=== PATIENT | female | born 1930 | race Caucasian/White ===

== ENCOUNTER 2018-11-16 13:05 | Inpatient (IN) | payer MEDICARE, OTHER ==
[~2018-11-16] VITALS: Ht 165.1 cm; Wt 92.3 kg
[2018-11-16 13:31] VITALS: BP 114/66; PULSE 72; RESP 18
[2018-11-16] MEDS ORDERED: HYDROCODONE/APAP (5/325) TAB PO PRN (14:30)
[2018-11-16] MEDS ORDERED: ACETAMINOPHEN 325 MG TAB PO PRN (14:30)
[2018-11-16] MEDS ORDERED: NACL 0.9% 3 ML SYG IV SCH (14:30)
[2018-11-16] MEDS ORDERED: NITROGLYCERIN (SL) 0.4 MG TAB SL PRN (14:30)
--- NOTE | 2018-11-16 14:49 | PREOPHP ---
DATE OF ADMISSION: 11/16/2018 REASON FOR ADMISSION: Cough with shortness of breath. HISTORY OF PRESENT ILLNESS: This 88-year-old female was seen in my office today because of a cough that she has had for about 1 week. The patient has had a congested cough. She has had some chills and sweats, but was not found to have an elevated temperature or fever. She also has some strong odor to her urine. The patient says that she feels weak. She does have a history of dementia and therefore her history is not accurate. Her son was on the phone at the same time I was seeing her. He did provide some details of her being weak with this cough and some strong odor to her urine. 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 MEDICATIONS: The patient is currently taking the followin. Celebrex 200 mg a day. 2. Dexilant 60 mg a day. 3. Estrace 1 mg a day. 4. Ferrous sulfate 325 mg a day. 5. Lasix 20 mg a day. 6. Gabapentin 400 mg twice a day. 7. [place] 5/325 every 6 hours p.r.n. pain. 8. Ativan 1 mg 2 times a day p.r.n. 9. Zoloft 100 mg a day. 10. Simvastatin 80 mg a day. 11. Xarelto 15 mg a day. PAST MEDICAL HISTORY: Remarkable for emphysema/COPD, atherosclerotic heart disease, chronic fatigue, hyperlipidemia, hypertension, carotid artery disease, scoliosis, menopausal lactose intolerance, peripheral neuropathy, depression, gastroesophageal reflux disease, chronic atrial fibrillation, mild dementia, lumbosacral spine disease. PAST SURGICAL HISTORY: Carotid angiogram with stent placement, back surgery, breast biopsy benign, tonsillectomy, total abdominal hysterectomy with bilateral salpingo-oophorectomy, right hip replacement, carotid endarterectomy. SOCIAL HISTORY: She is , former smoker. She does not drink alcohol. FAMILY HISTORY: Both parents are . Mother of leukemia. Father of coronary artery disease. REVIEW OF SYSTEMS: She denies chest pain. She does have some cough. See above. GASTROINTESTINAL: Negative. GENITOURINARY: Negative except that she has been told that her urine has a strong odor. NEUROLOGIC: Dementia and has some generalized weakness and is currently either using a walker or in a wheelchair. ALLERGIES: 1. DILAUDID 2. PENICILLIN. PHYSICAL EXAMINATION: GENERAL: Elderly frail female in no acute distress. VITAL SIGNS: Blood pressure 130/68, pulse of 91, temperature 97.8, O2 sat of 90% on 2 liter nasal cannula. The patient is on continuous oxygen. HEENT: Head normocephalic. Eyes: Extraocular muscles intact. NOSE AND MOUTH: Normal. NECK: Supple. No neck vein distention. LUNGS: She has rales in the right lung 3[address] Left lung she has some expiratory wheezes and coarse rhonchi. CARDIOVASCULAR: Irregular rhythm. No murmurs, gallops or rubs. ABDOMEN: Soft, nontender, no masses or megaly. EXTREMITIES: No peripheral edema. Pedal pulses are diminished. NEUROLOGIC: She has no obvious focal neurologic deficits, but does have diffuse weakness and needs either a walker or a wheelchair to ambulate. IMPRESSION: 1. Pneumonia/bronchitis superimposed on chronic obstructive pulmonary disease. The patient has had a cough for about 1 week. She sounds congested and has rales and wheezes on physical exam. She does use oxygen continuously on a regular basis at home . I suspect that she has either pneumonia and or acute bronchitis and will need antibiotic treatment. She is hypoxic off oxygen now . 2. Chronic atrial fibrillation. 3. Dementia. 4. Atherosclerotic heart disease. 5. Episodes of congestive heart failure with lower extremity edema. 6. Hyperlipidemia 7. UTI PLAN: 1. Routine laboratory tests and chest x-ray. 2. Start broad spectrum antibiotics. 3. Try to obtain sputum. 4. Urinalysis and urine culture. 5. Infectious disease consultation. 6. I have spoken to her son and for now, the patient wants to be a FULL CODE. Dictated By: BETTY MCKEON MD, ND/CORTES Conf#: [id number] DID#: [id number] [place]
[2018-11-16 15:44] VITALS: BP 135/69; PULSE 79; RESP 18
[2018-11-16] MEDS: LEVOFLOXACIN 500MG/D5W (PMX) 100 ML IVPB SCH (16:08)
[2018-11-16] MEDS: ALBUTEROL/IPRATROPIUM (NEB) 3 ML AMP HHN SCH (19:40)
[2018-11-16 19:53] VITALS: BP 135/60; PULSE 81; RESP 18
[2018-11-16] MEDS: GABAPENTIN 400 MG CAP PO SCH (21:42)
[2018-11-16] MEDS: ATORVASTATIN 20 MG TAB PO SCH (21:42)
[2018-11-17 00:52] VITALS: BP 131/81; PULSE 75; RESP 18
[2018-11-17 03:35] VITALS: BP 140/78; PULSE 75; RESP 18
[2018-11-17] MEDS: PANTOPRAZOLE (EC) 40 MG TAB PO SCH (06:01)
[2018-11-17] MEDS: ALBUTEROL/IPRATROPIUM (NEB) 3 ML AMP HHN SCH ×3 (08:00→20:58)
--- NOTE | 2018-11-17 08:40 | CONS ---
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 be enough 4) CAD CP is related to her coughing and she has some slight pain with pressure on her sternal/rib junction 5) chronic a-fib on xarelto Consultation Date/Type/Reason Admit Date/Time Nov 16, 2018 at 15:30 Date of Consultation: Nov 17, 2018 Type of Consult ID Date/Time of Note DATE: 11/17/18 TIME: 08:30 Hx of Present Illness pt was admitted due to cough productive of phlegm (color unknown) for about a week she also had some muscle aches at home she has a slight sore throat she has pain to her chest when she coughs no dysuria, N, V, D she was noted to have foul smelling urine Past Medical History COPD, ASHD, hyperlipidemia, scoliosis, peripheral neuropathy, chronic a-fib, dementia, HTN, CAD, GERD Medications Current Medications IV Flush (NS 3 ml) 3 ml PER PROTOCOL IV ; Start 11/16/18 at 14:30 Lorazepam (Ativan) 0.5 mg Q6H PRN IV .ANXIETY; Start 11/16/18 at 14:30 Nitroglycerin (Nitroglycerin (Sl Tab) 0.4 Mg) 1 tab Q5M PRN SL .CHEST PAIN; Start 11/16/18 at 14:30 Acetaminophen (Tylenol Tab) 650 mg Q6H PRN PO .PAIN 1-3 OR TEMP; Start 11/16/18 at 14:30 Acetaminophen/ Hydrocodone Bitart ([place] (5/325)) 1 tab Q6H PRN PO .PAIN 4-6 Last administered on 11/16/18at 15:59; Admin Dose 1 TAB; Start 11/16/18 at 14:30 Pantoprazole (Protonix Tab) 40 mg DAILY@06 PO Last administered on 11/17/18at 06:01; Admin Dose 40 MG; Start 11/17/18 at 06:00 Levofloxacin/ Dextrose 100 ml @ 100 mls/hr Q24H IVPB Last administered on 11/16/18at 16:08; Admin Dose 100 MLS/HR; Start 11/16/18 at 15:00 Albuterol/ Ipratropium (Duoneb) 3 ml Q6HWA RESP THERAPY HHN Last administered on 11/17/18at 08:00; Admin Dose 3 ML; Start 11/16/18 at 20:00 Celecoxib (Celebrex) 200 mg DAILY PO ; Start 11/17/18 at 09:00 Gabapentin (Neurontin) 400 mg BID PO Last administered on 11/16/18at 21:42; Admin Dose 400 MG; Start 11/16/18 at 21:00 Sertraline HCl (Zoloft) 100 mg DAILY PO ; Start 11/17/18 at 09:00 Atorvastatin Calcium (Lipitor) 20 mg HS PO Last administered on 11/16/18at 21:42; Admin Dose 20 MG; Start 11/16/18 at 21:00 Rivaroxaban (Xarelto) 15 mg DAILY PO ; Start 11/17/18 at 09:00 Allergies: Coded Allergies: Penicillins (Verified Allergy, Unknown, RASH, 06/17/09) hydromorphone (Verified Allergy, Unknown, RASH, 06/17/09) Past Surgical History R THR, CEA, back surgery. carotid stent Social History Smoking Status: Former smoker Exam/Review of Systems Exam Vitals Vital Signs Date Temp Pulse Resp B/P (MAP) Pulse Ox O2 O2 Flow FiO2 Time Delivery Rate 11/17/18 2.0 08:01 11/17/18 72 18 96 Nasal 08:01 Cannula 11/17/18 98.0 140/78 03:35 (98) Intake and Output 11/16/18 11/16/18 11/17/18 1515:00 23:00 07:00 IntakeIntake Total 300 ml 100 ml BalanceBalance 300 ml 100 ml Constitutional: alert Eyes: nl sclera ENMT: mucosa pink and moist Respiratory: other (coarse rhonchi bilateral) Cardiovascular: regular rate and rhythm Gastrointestinal: soft, non-tender Extremities: other (trace edema to LE but equal in size) Neurological: other (moves all extremities) Results Result Diagram: 11/17/18 0511/17/18 05 Results 24hrs Laboratory Tests Test 11/16/18 13:44 11/16/18 13:48 11/16/18 13:49 11/16/18 14:45 B-Type Natriuretic 7890 H Peptide White Blood Count 5.3 Red Blood Count 5.00 Hemoglobin 14.5 Hematocrit 45.8 Mean Corpuscular Volume 91.6 Mean Corpuscular 29.0 Hemoglobin Mean Corpuscular 31.7 L Hemoglobin Concent Red Cell Distribution 15.4 H Width Platelet Count 169 Mean Platelet Volume 10.7 H Immature Granulocytes % 0.400 Neutrophils % 77.1 H Lymphocytes % 8.1 L Monocytes % 11.5 H Eosinophils % 2.3 Basophils % 0.6 Nucleated Red Blood 0.0 Cells % Immature Granulocytes # 0.020 Neutrophils # 4.1 Lymphocytes # 0.4 L Monocytes # 0.6 Eosinophils # 0.1 Basophils # 0.0 Nucleated Red Blood 0.0 Cells # Prothrombin Time 25.0 H Prothrombin Time Ratio 2.0 INR International 2.26 Normalized Ratio Activated 49.6 H Partial Thromboplast Time Sodium Level 141 Potassium Level 3.8 Chloride Level 105 Carbon Dioxide Level 27 Anion Gap 9 Blood Urea Nitrogen 17 Creatinine 0.94 Est Glomerular Filtrat Rate mL/min Glucose Level 108 Calcium Level 9.4 Total Bilirubin 0.9 Direct Bilirubin 0.00 Indirect Bilirubin 0.9 Aspartate Amino 23 Transf (AST/SGOT) Alanine 24 Aminotransferase (ALT/SG PT) Alkaline Phosphatase 43 Total Protein 7.0 Albumin 4.0 Globulin 3.00 Albumin/Globulin Ratio 1.33 Procalcitonin 0.07 Urine Color YELLOW Urine Clarity CLOUDY A Urine pH 6.0 Urine Specific [place] 1.009 Urine Ketones NEGATIVE Urine Nitrite NEGATIVE Urine Bilirubin NEGATIVE Urine Urobilinogen NEGATIVE Urine Leukocyte Esterase 3+ H Urine Microscopic RBC 2 Urine Microscopic WBC > 182 H Urine Hemoglobin 2+ H Urine Glucose NEGATIVE Urine Total Protein 1+ H Test 11/17/18 05:26 White Blood Count 6.0 Red Blood Count 4.72 Hemoglobin 13.6 Hematocrit 43.7 Mean Corpuscular Volume 92.6 Mean Corpuscular 28.8 L Hemoglobin Mean Corpuscular 31.1 L Hemoglobin Concent Red Cell Distribution 15.2 H Width Platelet Count 168 Mean Platelet Volume 10.6 H Immature Granulocytes % 0.500 H Neutrophils % 71.8 Lymphocytes % 8.2 L Monocytes % 11.9 H Eosinophils % 6.9 Basophils % 0.7 Nucleated Red Blood 0.0 Cells % Immature Granulocytes # 0.030 Neutrophils # 4.3 Lymphocytes # 0.5 L Monocytes # 0.7 Eosinophils # 0.4 Basophils # 0.0 Nucleated Red Blood 0.0 Cells # Sodium Level 143 Potassium Level 4.0 Chloride Level 106 Carbon Dioxide Level 29 Anion Gap 8 Blood Urea Nitrogen 20 Creatinine 0.87 Est Glomerular Filtrat Rate mL/min Glucose Level 120 Calcium Level 9.0 Phosphorus Level 3.2 Magnesium Level 2.0 Total Bilirubin 0.5 Direct Bilirubin 0.00 Indirect Bilirubin 0.5 Aspartate Amino 23 Transf (AST/SGOT) Alanine 23 Aminotransferase (ALT/SG PT) Alkaline Phosphatase 35 L Total Protein 6.5 Albumin 3.6 Globulin 2.90 Albumin/Globulin Ratio 1.24 Medications Medication Current Medications IV Flush (NS 3 ml) 3 ml PER PROTOCOL IV ; Start 11/16/18 at 14:30 Lorazepam (Ativan) 0.5 mg Q6H PRN IV .ANXIETY; Start 11/16/18 at 14:30 Nitroglycerin (Nitroglycerin (Sl Tab) 0.4 Mg) 1 tab Q5M PRN SL .CHEST PAIN; Start 11/16/18 at 14:30 Acetaminophen (Tylenol Tab) 650 mg Q6H PRN PO .PAIN 1-3 OR TEMP; Start 11/16/18 at 14:30 Acetaminophen/ Hydrocodone Bitart ([place] (5/325)) 1 tab Q6H PRN PO .PAIN 4-6 Last administered on 11/16/18at 15:59; Admin Dose 1 TAB; Start 11/16/18 at 14:30 Pantoprazole (Protonix Tab) 40 mg DAILY@06 PO Last administered on 11/17/18at 06:01; Admin Dose 40 MG; Start 11/17/18 at 06:00 Levofloxacin/ Dextrose 100 ml @ 100 mls/hr Q24H IVPB Last administered on 11/16/18at 16:08; Admin Dose 100 MLS/HR; Start 11/16/18 at 15:00 Albuterol/ Ipratropium (Duoneb) 3 ml Q6HWA RESP THERAPY HHN Last administered on 11/17/18at 08:00; Admin Dose 3 ML; Start 11/16/18 at 20:00 Celecoxib (Celebrex) 200 mg DAILY PO ; Start 11/17/18 at 09:00 Gabapentin (Neurontin) 400 mg BID PO Last administered on 11/16/18at 21:42; Admin Dose 400 MG; Start 11/16/18 at 21:00 Sertraline HCl (Zoloft) 100 mg DAILY PO ; Start 11/17/18 at 09:00 Atorvastatin Calcium (Lipitor) 20 mg HS PO Last administered on 11/16/18at 21:42; Admin Dose 20 MG; Start 11/16/18 at 21:00 Rivaroxaban (Xarelto) 15 mg DAILY PO ; Start 11/17/18 at 09:00 LEXIE LEAVITT MD Nov 17, 2018 08:40
[2018-11-17] MEDS: GABAPENTIN 400 MG CAP PO SCH ×2 (09:03→21:06)
[2018-11-17] MEDS: CELECOXIB 200 MG CAP PO SCH (09:03)
[2018-11-17] MEDS: SERTRALINE 100 MG TAB PO SCH (09:03)
[2018-11-17] MEDS: RIVAROXABAN 15 MG TABLET PO SCH (09:03)
--- NOTE | 2018-11-17 10:11 | PN ---
Date/Time of Note Date/Time of Note DATE: 11/17/18 TIME: 10:09 Assessment/Plan VTE Prophylaxis Risk score (from Ns)>0 risk: 6 SCD applied (from [facility] [place]): Yes Pharmacological prophylaxis: rivaroxaban Lines/Catheters IV Catheter Type ([facility] Peripheral IV Assessment/Plan Assessment/Plan 1. URI/Bronchitis, ID eval apprec 2. Chronic atrial fibrillation, stable on xarelto 3. Dementia. 4. Atherosclerotic heart disease, asx 5. HX congestive heart failure, now not present 6. Hyperlipidemia 7. UTI, cult pending 8. Will be sure PT was ordered Result Diagram: 11/17/18 0511/17/18 05 Results 24hrs Laboratory Tests Test 11/16/18 13:44 11/16/18 13:48 11/16/18 13:49 11/16/18 14:45 B-Type Natriuretic 7890 H Peptide White Blood Count 5.3 Red Blood Count 5.00 Hemoglobin 14.5 Hematocrit 45.8 Mean Corpuscular Volume 91.6 Mean Corpuscular 29.0 Hemoglobin Mean Corpuscular 31.7 L Hemoglobin Concent Red Cell Distribution 15.4 H Width Platelet Count 169 Mean Platelet Volume 10.7 H Immature Granulocytes % 0.400 Neutrophils % 77.1 H Lymphocytes % 8.1 L Monocytes % 11.5 H Eosinophils % 2.3 Basophils % 0.6 Nucleated Red Blood 0.0 Cells % Immature Granulocytes # 0.020 Neutrophils # 4.1 Lymphocytes # 0.4 L Monocytes # 0.6 Eosinophils # 0.1 Basophils # 0.0 Nucleated Red Blood 0.0 Cells # Prothrombin Time 25.0 H Prothrombin Time Ratio 2.0 INR International 2.26 Normalized Ratio Activated 49.6 H Partial Thromboplast Time Sodium Level 141 Potassium Level 3.8 Chloride Level 105 Carbon Dioxide Level 27 Anion Gap 9 Blood Urea Nitrogen 17 Creatinine 0.94 Est Glomerular Filtrat Rate mL/min Glucose Level 108 Calcium Level 9.4 Total Bilirubin 0.9 Direct Bilirubin 0.00 Indirect Bilirubin 0.9 Aspartate Amino 23 Transf (AST/SGOT) Alanine 24 Aminotransferase (ALT/SG PT) Alkaline Phosphatase 43 Total Protein 7.0 Albumin 4.0 Globulin 3.00 Albumin/Globulin Ratio 1.33 Procalcitonin 0.07 Urine Color YELLOW Urine Clarity CLOUDY A Urine pH 6.0 Urine Specific [place] 1.009 Urine Ketones NEGATIVE Urine Nitrite NEGATIVE Urine Bilirubin NEGATIVE Urine Urobilinogen NEGATIVE Urine Leukocyte Esterase 3+ H Urine Microscopic RBC 2 Urine Microscopic WBC > 182 H Urine Hemoglobin 2+ H Urine Glucose NEGATIVE Urine Total Protein 1+ H Test 11/17/18 05:26 White Blood Count 6.0 Red Blood Count 4.72 Hemoglobin 13.6 Hematocrit 43.7 Mean Corpuscular Volume 92.6 Mean Corpuscular 28.8 L Hemoglobin Mean Corpuscular 31.1 L Hemoglobin Concent Red Cell Distribution 15.2 H Width Platelet Count 168 Mean Platelet Volume 10.6 H Immature Granulocytes % 0.500 H Neutrophils % 71.8 Lymphocytes % 8.2 L Monocytes % 11.9 H Eosinophils % 6.9 Basophils % 0.7 Nucleated Red Blood 0.0 Cells % Immature Granulocytes # 0.030 Neutrophils # 4.3 Lymphocytes # 0.5 L Monocytes # 0.7 Eosinophils # 0.4 Basophils # 0.0 Nucleated Red Blood 0.0 Cells # Sodium Level 143 Potassium Level 4.0 Chloride Level 106 Carbon Dioxide Level 29 Anion Gap 8 Blood Urea Nitrogen 20 Creatinine 0.87 Est Glomerular Filtrat Rate mL/min Glucose Level 120 Hemoglobin A1c 5.9 Calcium Level 9.0 Phosphorus Level 3.2 Magnesium Level 2.0 Total Bilirubin 0.5 Direct Bilirubin 0.00 Indirect Bilirubin 0.5 Aspartate Amino 23 Transf (AST/SGOT) Alanine 23 Aminotransferase (ALT/SG PT) Alkaline Phosphatase 35 L Total Protein 6.5 Albumin 3.6 Globulin 2.90 Albumin/Globulin Ratio 1.24 Subjective 24 Hr Interval Summary Constitutional: other (faigue and "does not feel well") Respiratory: cough (is mild and chest is congested) Gastrointestinal: no complaints Genitourinary: no complaints Neurologic: No headache Exam/Review of Systems Exam Vitals Vital Signs Date Temp Pulse Resp B/P (MAP) Pulse Ox O2 O2 Flow FiO2 Time Delivery Rate 11/17/18 2.0 08:01 11/17/18 72 18 96 Nasal 08:01 Cannula 11/17/18 98.0 140/78 03:35 (98) Intake and Output 11/16/18 11/16/18 11/17/18 1515:00 23:00 07:00 IntakeIntake Total 300 ml 100 ml BalanceBalance 300 ml 100 ml Neck: No jvd Respiratory: clear to auscultation Cardiovascular: irregular rhythm Gastrointestinal: soft Extremities: No edema, No pitting pedal edema, No tenderness Results Results 24hrs Laboratory Tests Test 11/16/18 13:44 11/16/18 13:48 11/16/18 13:49 11/16/18 14:45 B-Type Natriuretic 7890 H Peptide White Blood Count 5.3 Red Blood Count 5.00 Hemoglobin 14.5 Hematocrit 45.8 Mean Corpuscular Volume 91.6 Mean Corpuscular 29.0 Hemoglobin Mean Corpuscular 31.7 L Hemoglobin Concent Red Cell Distribution 15.4 H Width Platelet Count 169 Mean Platelet Volume 10.7 H Immature Granulocytes % 0.400 Neutrophils % 77.1 H Lymphocytes % 8.1 L Monocytes % 11.5 H Eosinophils % 2.3 Basophils % 0.6 Nucleated Red Blood 0.0 Cells % Immature Granulocytes # 0.020 Neutrophils # 4.1 Lymphocytes # 0.4 L Monocytes # 0.6 Eosinophils # 0.1 Basophils # 0.0 Nucleated Red Blood 0.0 Cells # Prothrombin Time 25.0 H Prothrombin Time Ratio 2.0 INR International 2.26 Normalized Ratio Activated 49.6 H Partial Thromboplast Time Sodium Level 141 Potassium Level 3.8 Chloride Level 105 Carbon Dioxide Level 27 Anion Gap 9 Blood Urea Nitrogen 17 Creatinine 0.94 Est Glomerular Filtrat Rate mL/min Glucose Level 108 Calcium Level 9.4 Total Bilirubin 0.9 Direct Bilirubin 0.00 Indirect Bilirubin 0.9 Aspartate Amino 23 Transf (AST/SGOT) Alanine 24 Aminotransferase (ALT/SG PT) Alkaline Phosphatase 43 Total Protein 7.0 Albumin 4.0 Globulin 3.00 Albumin/Globulin Ratio 1.33 Procalcitonin 0.07 Urine Color YELLOW Urine Clarity CLOUDY A Urine pH 6.0 Urine Specific [place] 1.009 Urine Ketones NEGATIVE Urine Nitrite NEGATIVE Urine Bilirubin NEGATIVE Urine Urobilinogen NEGATIVE Urine Leukocyte Esterase 3+ H Urine Microscopic RBC 2 Urine Microscopic WBC > 182 H Urine Hemoglobin 2+ H Urine Glucose NEGATIVE Urine Total Protein 1+ H Test 11/17/18 05:26 White Blood Count 6.0 Red Blood Count 4.72 Hemoglobin 13.6 Hematocrit 43.7 Mean Corpuscular Volume 92.6 Mean Corpuscular 28.8 L Hemoglobin Mean Corpuscular 31.1 L Hemoglobin Concent Red Cell Distribution 15.2 H Width Platelet Count 168 Mean Platelet Volume 10.6 H Immature Granulocytes % 0.500 H Neutrophils % 71.8 Lymphocytes % 8.2 L Monocytes % 11.9 H Eosinophils % 6.9 Basophils % 0.7 Nucleated Red Blood 0.0 Cells % Immature Granulocytes # 0.030 Neutrophils # 4.3 Lymphocytes # 0.5 L Monocytes # 0.7 Eosinophils # 0.4 Basophils # 0.0 Nucleated Red Blood 0.0 Cells # Sodium Level 143 Potassium Level 4.0 Chloride Level 106 Carbon Dioxide Level 29 Anion Gap 8 Blood Urea Nitrogen 20 Creatinine 0.87 Est Glomerular Filtrat Rate mL/min Glucose Level 120 Hemoglobin A1c 5.9 Calcium Level 9.0 Phosphorus Level 3.2 Magnesium Level 2.0 Total Bilirubin 0.5 Direct Bilirubin 0.00 Indirect Bilirubin 0.5 Aspartate Amino 23 Transf (AST/SGOT) Alanine 23 Aminotransferase (ALT/SG PT) Alkaline Phosphatase 35 L Total Protein 6.5 Albumin 3.6 Globulin 2.90 Albumin/Globulin Ratio 1.24 Medications Medication Current Medications IV Flush (NS 3 ml) 3 ml PER PROTOCOL IV ; Start 11/16/18 at 14:30 Lorazepam (Ativan) 0.5 mg Q6H PRN IV .ANXIETY; Start 11/16/18 at 14:30 Nitroglycerin (Nitroglycerin (Sl Tab) 0.4 Mg) 1 tab Q5M PRN SL .CHEST PAIN; Start 11/16/18 at 14:30 Acetaminophen (Tylenol Tab) 650 mg Q6H PRN PO .PAIN 1-3 OR TEMP; Start 11/16/18 at 14:30 Acetaminophen/ Hydrocodone Bitart ([place] (5/325)) 1 tab Q6H PRN PO .PAIN 4-6 Last administered on 11/16/18at 15:59; Admin Dose 1 TAB; Start 11/16/18 at 14:30 Pantoprazole (Protonix Tab) 40 mg DAILY@06 PO Last administered on 11/17/18at 06:01; Admin Dose 40 MG; Start 11/17/18 at 06:00 Levofloxacin/ Dextrose 100 ml @ 100 mls/hr Q24H IVPB Last administered on 11/16/18at 16:08; Admin Dose 100 MLS/HR; Start 11/16/18 at 15:00 Albuterol/ Ipratropium (Duoneb) 3 ml Q6HWA RESP THERAPY HHN Last administered on 11/17/18at 08:00; Admin Dose 3 ML; Start 11/16/18 at 20:00 Celecoxib (Celebrex) 200 mg DAILY PO Last administered on 11/17/18 09:03; Admin Dose 200 MG; Start 11/17/18 at 09:00 Gabapentin (Neurontin) 400 mg BID PO Last administered on 11/17/18 09:03; Admin Dose 400 MG; Start 11/16/18 at 21:00 Sertraline HCl (Zoloft) 100 mg DAILY PO Last administered on 11/17/18 09:03; Admin Dose 100 MG; Start 11/17/18 at 09:00 Atorvastatin Calcium (Lipitor) 20 mg HS PO Last administered on 11/16/18 21:42; Admin Dose 20 MG; Start 11/16/18 at 21:00 Rivaroxaban (Xarelto) 15 mg DAILY PO Last administered on 11/17/18 09:03; Admin Dose 15 MG; Start 11/17/18 at 09:00 MEGAN HEREDIA MD Nov 17, 2018 10:11
[2018-11-17 12:10] VITALS: BP 143/65; PULSE 85; RESP 18
[2018-11-17] MEDS: LEVOFLOXACIN 500MG/D5W (PMX) 100 ML IVPB SCH (14:28)
[2018-11-17 15:56] VITALS: BP 140/56; PULSE 79; RESP 18
[2018-11-17 19:46] VITALS: BP 137/83; PULSE 75; RESP 18
[2018-11-17] MEDS: ATORVASTATIN 20 MG TAB PO SCH (21:07)
[2018-11-18 00:21] VITALS: BP 163/87; PULSE 87; RESP 18
[2018-11-18 04:10] VITALS: BP 143/66; PULSE 72; RESP 18
[2018-11-18] MEDS: PANTOPRAZOLE (EC) 40 MG TAB PO SCH (05:41)
[2018-11-18 07:49] VITALS: BP 183/90; PULSE 83; RESP 18
[2018-11-18] MEDS ORDERED: LEVOFLOXACIN 500 MG TAB PO ONE (08:00)
[2018-11-18] MEDS: ALBUTEROL/IPRATROPIUM (NEB) 3 ML AMP HHN SCH ×3 (08:00→20:22)
--- NOTE | 2018-11-18 08:02 | CONS ---
Assessment/Plan Assessment/Plan Hospital Course (Demo Recall) 1) COPD exacerbation and bronchitis on levaquin initial procalcitonin was neg, to repeat get nasal for viral PCR sputum cx was just collected get nasal for MRSA 11/18 - nasal has MRSA but pt has improved this likely represents colonization, recommend 10 days of bactroban to nares finish her levaquin (7 day course) will change levaquin to po form 2) probable UTI GNR noted in urine cx normal WBC, await final sensi's renal function is good 11/18 - pt has proteus in urine, sensi's are not available till tomorrow continue with levaquin 3) dementia 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 which may not be enough 4) CAD CP is related to her coughing and she has some slight pain with pressure on her sternal/rib junction 5) chronic a-fib on xarelto Consultation Date/Type/Reason Admit Date/Time Nov 16, 2018 at 15:30 Initial Consult Date 11/17/18 Type of Consult ID Date/Time of Note DATE: 11/18/18 TIME: 07:57 24 HR Interval Summary Free Text/Dictation pt states her breathing is better and that she is going home still has a cough although she denies this no N, V, D Exam/Review of Systems Exam Vitals Vital Signs Date Temp Pulse Resp B/P (MAP) Pulse Ox O2 O2 Flow FiO2 Time Delivery Rate 11/18/18 97.9 83 18 183/90 97 07:49 (121) 11/18/18 3.0 04:13 11/17/18 Nasal 20:58 Cannula Intake and Output 11/17/18 11/17/18 11/18/18 1515:00 23:00 07:00 IntakeIntake Total 480 ml 500 ml BalanceBalance 480 ml 500 ml Constitutional: alert Eyes: nl sclera ENMT: mucosa pink and moist Respiratory: clear to auscultation Cardiovascular: regular rate and rhythm Gastrointestinal: soft, non-tender Results Result Diagram: 11/18/18 0508 11/18/18 0508 Results 24hrs Laboratory Tests Test 11/18/18 05:08 White Blood Count 5.6 Red Blood Count 4.68 Hemoglobin 13.6 Hematocrit 43.2 Mean Corpuscular Volume 92.3 Mean Corpuscular Hemoglobin 29.1 Mean Corpuscular Hemoglobin Concent 31.5 L Red Cell Distribution Width 15.5 H Platelet Count 184 Mean Platelet Volume 10.7 H Immature Granulocytes % 0.200 Neutrophils % 71.5 Lymphocytes % 11.4 L Monocytes % 9.6 Eosinophils % 6.6 Basophils % 0.7 Nucleated Red Blood Cells % 0.0 Immature Granulocytes # 0.010 Neutrophils # 4.0 Lymphocytes # 0.6 L Monocytes # 0.5 Eosinophils # 0.4 Basophils # 0.0 Nucleated Red Blood Cells # 0.0 Sodium Level 144 Potassium Level 3.5 Chloride Level 109 Carbon Dioxide Level 27 Anion Gap 8 Blood Urea Nitrogen 17 Creatinine 0.72 Est Glomerular Filtrat Rate mL/min Glucose Level 159 Calcium Level 9.1 Medications Medication Current Medications IV Flush (NS 3 ml) 3 ml PER PROTOCOL IV ; Start 11/16/18 at 14:30 Lorazepam (Ativan) 0.5 mg Q6H PRN IV .ANXIETY; Start 11/16/18 at 14:30 Nitroglycerin (Nitroglycerin (Sl Tab) 0.4 Mg) 1 tab Q5M PRN SL .CHEST PAIN; Start 11/16/18 at 14:30 Acetaminophen (Tylenol Tab) 650 mg Q6H PRN PO .PAIN 1-3 OR TEMP; Start 11/16/18 at 14:30 Acetaminophen/ Hydrocodone Bitart ([place] (5/325)) 1 tab Q6H PRN PO .PAIN 4-6 Last administered on 11/16/18at 15:59; Admin Dose 1 TAB; Start 11/16/18 at 14:30 Pantoprazole (Protonix Tab) 40 mg DAILY@06 PO Last administered on 11/17/18at 06:01; Admin Dose 40 MG; Start 11/17/18 at 06:00 Levofloxacin/ Dextrose 100 ml @ 100 mls/hr Q24H IVPB Last administered on 11/17/18 14:28; Admin Dose 100 MLS/HR; Start 11/16/18 at 15:00 Albuterol/ Ipratropium (Duoneb) 3 ml Q6HWA RESP THERAPY HHN Last administered on 11/17/18at 20:58; Admin Dose 3 ML; Start 11/16/18 at 20:00 Celecoxib (Celebrex) 200 mg DAILY PO Last administered on 11/17/18at 09:03; Admin Dose 200 MG; Start 11/17/18 at 09:00 Gabapentin (Neurontin) 400 mg BID PO Last administered on 11/17/18 21:06; Admin Dose 400 MG; Start 11/16/18 at 21:00 Sertraline HCl (Zoloft) 100 mg DAILY PO Last administered on 11/17/18 09:03; Admin Dose 100 MG; Start 11/17/18 at 09:00 Atorvastatin Calcium (Lipitor) 20 mg HS PO Last administered on 11/17/18at 21:07; Admin Dose 20 MG; Start 11/16/18 at 21:00 Rivaroxaban (Xarelto) 15 mg DAILY PO Last administered on 11/17/18 09:03; Admin Dose 15 MG; Start 11/17/18 at 09:00 LEXIE LEAVITT MD Nov 18, 2018 08:02
--- NOTE | 2018-11-18 09:42 | PN ---
Date/Time of Note Date/Time of Note DATE: 11/18/18 TIME: 09:40 Assessment/Plan VTE Prophylaxis Risk score (from Ns)>0 risk: 6 SCD applied (from Ns): Yes Pharmacological prophylaxis: rivaroxaban Lines/Catheters IV Catheter Type (from Nrsg): Peripheral IV Assessment/Plan Assessment/Plan 1. Acute bronchitis, slowly resolving, ID note rev 2. Atrial fib 3. BP inc, added Catapres 4. Dementia is problematic, wants to go home today, rev with her importance of continuing care here Result Diagram: 11/18/18 0508 11/18/18 0508 Results 24hrs Laboratory Tests Test 11/18/18 05:08 White Blood Count 5.6 Red Blood Count 4.68 Hemoglobin 13.6 Hematocrit 43.2 Mean Corpuscular Volume 92.3 Mean Corpuscular Hemoglobin 29.1 Mean Corpuscular Hemoglobin Concent 31.5 L Red Cell Distribution Width 15.5 H Platelet Count 184 Mean Platelet Volume 10.7 H Immature Granulocytes % 0.200 Neutrophils % 71.5 Lymphocytes % 11.4 L Monocytes % 9.6 Eosinophils % 6.6 Basophils % 0.7 Nucleated Red Blood Cells % 0.0 Immature Granulocytes # 0.010 Neutrophils # 4.0 Lymphocytes # 0.6 L Monocytes # 0.5 Eosinophils # 0.4 Basophils # 0.0 Nucleated Red Blood Cells # 0.0 Sodium Level 144 Potassium Level 3.5 Chloride Level 109 Carbon Dioxide Level 27 Anion Gap 8 Blood Urea Nitrogen 17 Creatinine 0.72 Est Glomerular Filtrat Rate mL/min Glucose Level 159 Calcium Level 9.1 Subjective 24 Hr Interval Summary Respiratory: cough (is mild and not productive); No pleuritic pain, No shortness of breath Cardiovascular: no complaints Gastrointestinal: no complaints Genitourinary: no complaints Musculoskeletal: no complaints Exam/Review of Systems Exam Vitals Vital Signs Date Temp Pulse Resp B/P (MAP) Pulse Ox O2 O2 Flow FiO2 Time Delivery Rate 11/18/18 4.0 08:21 11/18/18 97.9 83 18 183/90 97 07:49 (121) 11/17/18 Nasal 20:58 Cannula Intake and Output 11/17/18 11/17/18 11/18/18 1515:00 23:00 07:00 IntakeIntake Total 480 ml 500 ml BalanceBalance 480 ml 500 ml Neck: No jvd Respiratory: other (rhonchi and few wheezes bilat) Cardiovascular: No irregular rhythm Gastrointestinal: soft Extremities: No edema Results Results 24hrs Laboratory Tests Test 11/18/18 05:08 White Blood Count 5.6 Red Blood Count 4.68 Hemoglobin 13.6 Hematocrit 43.2 Mean Corpuscular Volume 92.3 Mean Corpuscular Hemoglobin 29.1 Mean Corpuscular Hemoglobin Concent 31.5 L Red Cell Distribution Width 15.5 H Platelet Count 184 Mean Platelet Volume 10.7 H Immature Granulocytes % 0.200 Neutrophils % 71.5 Lymphocytes % 11.4 L Monocytes % 9.6 Eosinophils % 6.6 Basophils % 0.7 Nucleated Red Blood Cells % 0.0 Immature Granulocytes # 0.010 Neutrophils # 4.0 Lymphocytes # 0.6 L Monocytes # 0.5 Eosinophils # 0.4 Basophils # 0.0 Nucleated Red Blood Cells # 0.0 Sodium Level 144 Potassium Level 3.5 Chloride Level 109 Carbon Dioxide Level 27 Anion Gap 8 Blood Urea Nitrogen 17 Creatinine 0.72 Est Glomerular Filtrat Rate mL/min Glucose Level 159 Calcium Level 9.1 Medications Medication Current Medications IV Flush (NS 3 ml) 3 ml PER PROTOCOL IV ; Start 11/16/18 at 14:30 Lorazepam (Ativan) 0.5 mg Q6H PRN IV .ANXIETY; Start 11/16/18 at 14:30 Nitroglycerin (Nitroglycerin (Sl Tab) 0.4 Mg) 1 tab Q5M PRN SL .CHEST PAIN; Start 11/16/18 at 14:30 Acetaminophen (Tylenol Tab) 650 mg Q6H PRN PO .PAIN 1-3 OR TEMP; Start 11/16/18 at 14:30 Acetaminophen/ Hydrocodone Bitart ([place] (5/325)) 1 tab Q6H PRN PO .PAIN 4-6 Last administered on 11/16/18at 15:59; Admin Dose 1 TAB; Start 11/16/18 at 14:30 Pantoprazole (Protonix Tab) 40 mg DAILY@06 PO Last administered on 11/17/18at 06:01; Admin Dose 40 MG; Start 11/17/18 at 06:00 Albuterol/ Ipratropium (Duoneb) 3 ml Q6HWA RESP THERAPY HHN Last administered on 11/17/18at 20:58; Admin Dose 3 ML; Start 11/16/18 at 20:00 Celecoxib (Celebrex) 200 mg DAILY PO Last administered on 11/17/18 09:03; Admin Dose 200 MG; Start 11/17/18 at 09:00 Gabapentin (Neurontin) 400 mg BID PO Last administered on 11/17/18at 21:06; Admin Dose 400 MG; Start 11/16/18 at 21:00 Sertraline HCl (Zoloft) 100 mg DAILY PO Last administered on 11/17/18at 09:03; Admin Dose 100 MG; Start 11/17/18 at 09:00 Atorvastatin Calcium (Lipitor) 20 mg HS PO Last administered on 11/17/18at 21:07; Admin Dose 20 MG; Start 11/16/18 at 21:00 Rivaroxaban (Xarelto) 15 mg DAILY PO Last administered on 11/17/18 09:03; Admin Dose 15 MG; Start 11/17/18 at 09:00 Levofloxacin (Levaquin) 500 mg DAILY@06 PO ; Start 11/19/18 at 06:00 Mupirocin (Bactroban) 1 applic BID TOP ; Start 11/18/18 at 09:00 MEGAN HEREDIA MD Nov 18, 2018 09:42
[2018-11-18] MEDS: SERTRALINE 100 MG TAB PO SCH (09:55)
[2018-11-18] MEDS: RIVAROXABAN 15 MG TABLET PO SCH (09:55)
[2018-11-18] MEDS: CELECOXIB 200 MG CAP PO SCH (09:55)
[2018-11-18] MEDS: MUPIROCIN 2% 22 GM OINT TOP SCH ×2 (09:55→21:00)
[2018-11-18] MEDS: POTASSIUM CHLORIDE (SR) 10 MEQ TAB PO ONE ×2 (09:55→10:54)
[2018-11-18] MEDS: GABAPENTIN 400 MG CAP PO SCH ×2 (09:55→21:00)
[2018-11-18 12:20] VITALS: BP 114/66; PULSE 76; RESP 22
[2018-11-18 15:12] VITALS: BP 107/56; PULSE 94; RESP 22
[2018-11-18 19:38] VITALS: BP 150/86; PULSE 84; RESP 20
[2018-11-18] MEDS: ATORVASTATIN 20 MG TAB PO SCH (21:00)
[2018-11-19] VITALS (7 sets, daily range): BP systolic 104–162; BP diastolic 57–89; PULSE 62–89; RESP 19–22
[2018-11-19] MEDS: LORAZEPAM 2 MG INJ IV PRN (02:01)
[2018-11-19] MEDS: LEVOFLOXACIN 500 MG TAB PO SCH (06:00)
[2018-11-19] MEDS: PANTOPRAZOLE (EC) 40 MG TAB PO SCH (06:00)
--- NOTE | 2018-11-19 07:10 | CONS ---
Assessment/Plan Assessment/Plan Hospital Course (Demo Recall) 1) COPD exacerbation and bronchitis on levaquin initial procalcitonin was neg, to repeat get nasal for viral PCR sputum cx was just collected get nasal for MRSA 11/18 - nasal has MRSA but pt has improved this likely represents colonization, recommend 10 days of bactroban to nares finish her levaquin (7 day course) will change levaquin to po form 11/19 - no new problems, on levaquin day 07/22 2) probable UTI GNR noted in urine cx normal WBC, await final sensi's renal function is good 11/18 - pt has proteus in urine, sensi's are not available till tomorrow continue with levaquin 11/19 - levaquin is sensitive to her proteus, day 07/22 of treatment 3) dementia pt has 4 hours of psychologist personnel hours per day which may not be enough 4) CAD CP is related to her coughing and she has some slight pain with pressure on her sternal/rib junction 5) chronic a-fib on xarelto Consultation Date/Type/Reason Admit Date/Time Nov 16, 2018 at 15:30 Initial Consult Date 11/17/18 Type of Consult ID Date/Time of Note DATE: 11/19/18 TIME: 07:07 24 HR Interval Summary Free Text/Dictation pt got ambien early this a.m. and still sleeping no V looks comfortable at rest Exam/Review of Systems Exam Vitals Vital Signs Date Temp Pulse Resp B/P (MAP) Pulse Ox O2 O2 Flow FiO2 Time Delivery Rate 11/19/18 98.0 62 20 133/75 96 Nasal 4.0 04:30 (94) Cannula Intake and Output 11/18/18 11/18/18 11/19/18 1515:00 23:00 07:00 IntakeIntake Total 1000 ml OutputOutput Total 5 ml BalanceBalance 995 ml Respiratory: clear to auscultation Cardiovascular: regular rate and rhythm Gastrointestinal: soft, non-tender Results Result Diagram: 11/19/18 0537 11/19/18 0537 Results 24hrs Laboratory Tests Test 11/19/18 05:37 White Blood Count 4.2 #L Red Blood Count 4.56 Hemoglobin 13.1 Hematocrit 41.8 Mean Corpuscular Volume 91.7 Mean Corpuscular Hemoglobin 28.7 L Mean Corpuscular Hemoglobin Concent 31.3 L Red Cell Distribution Width 15.2 H Platelet Count 181 Mean Platelet Volume 10.1 Immature Granulocytes % 0.000 L Neutrophils % 67.1 Lymphocytes % 16.1 Monocytes % 8.4 Eosinophils % 7.9 H Basophils % 0.5 Nucleated Red Blood Cells % 0.0 Immature Granulocytes # 0.000 Neutrophils # 2.8 Lymphocytes # 0.7 L Monocytes # 0.4 Eosinophils # 0.3 Basophils # 0.0 Nucleated Red Blood Cells # 0.0 Sodium Level 142 Potassium Level 3.6 Chloride Level 106 Carbon Dioxide Level 29 Anion Gap 7 Blood Urea Nitrogen 17 Creatinine 0.78 Est Glomerular Filtrat Rate mL/min Glucose Level 115 # Calcium Level 9.3 Phosphorus Level 3.6 Magnesium Level 2.0 Medications Medication Current Medications IV Flush (NS 3 ml) 3 ml PER PROTOCOL IV ; Start 11/16/18 at 14:30 Lorazepam (Ativan) 0.5 mg Q6H PRN IV .ANXIETY Last administered on 11/19/18at 02:01; Admin Dose 0.5 MG; Start 11/16/18 at 14:30 Nitroglycerin (Nitroglycerin (Sl Tab) 0.4 Mg) 1 tab Q5M PRN SL .CHEST PAIN; Start 11/16/18 at 14:30 Acetaminophen (Tylenol Tab) 650 mg Q6H PRN PO .PAIN 1-3 OR TEMP; Start 11/16/18 at 14:30 Acetaminophen/ Hydrocodone Bitart ([place] (5/325)) 1 tab Q6H PRN PO .PAIN 4-6 Last administered on 11/16/18at 15:59; Admin Dose 1 TAB; Start 11/16/18 at 14:30 Pantoprazole (Protonix Tab) 40 mg DAILY@06 PO Last administered on 11/17/18at 06:01; Admin Dose 40 MG; Start 11/17/18 at 06:00 Albuterol/ Ipratropium (Duoneb) 3 ml Q6HWA RESP THERAPY HHN Last administered on 11/18/18at 20:22; Admin Dose 3 ML; Start 11/16/18 at 20:00 Celecoxib (Celebrex) 200 mg DAILY PO Last administered on 11/18/18at 09:55; Admin Dose 200 MG; Start 11/17/18 at 09:00 Gabapentin (Neurontin) 400 mg BID PO Last administered on 11/18/18 21:00; Admin Dose 400 MG; Start 11/16/18 at 21:00 Sertraline HCl (Zoloft) 100 mg DAILY PO Last administered on 11/18/18 09:55; Admin Dose 100 MG; Start 11/17/18 at 09:00 Atorvastatin Calcium (Lipitor) 20 mg HS PO Last administered on 11/18/18 21:00; Admin Dose 20 MG; Start 11/16/18 at 21:00 Rivaroxaban (Xarelto) 15 mg DAILY PO Last administered on 11/18/18 09:55; Admin Dose 15 MG; Start 11/17/18 at 09:00 Levofloxacin (Levaquin) 500 mg DAILY@06 PO ; Start 11/19/18 at 06:00 Mupirocin (Bactroban) 1 applic BID TOP Last administered on 11/18/18 09:55; Admin Dose 1 APPLIC; Start 11/18/18 at 09:00 Clonidine (Catapres) 0.1 mg TID PO Last administered on 11/18/18 21:00; Admin Dose 0.1 MG; Start 11/18/18 at 10:00 LEXIE LEAVITT MD Nov 19, 2018 07:10
[2018-11-19] MEDS: ALBUTEROL/IPRATROPIUM (NEB) 3 ML AMP HHN SCH ×3 (07:57→22:00)
--- NOTE | 2018-11-19 08:13 | PN ---
Date/Time of Note Date/Time of Note DATE: 11/19/18 TIME: 08:08 Assessment/Plan VTE Prophylaxis Risk score (from Ns)>0 risk: 6 SCD applied (from Ns): Yes SCD contraindicated: low risk/ambulating Pharmacological prophylaxis: rivaroxaban Lines/Catheters IV Catheter Type (from [facility]): Peripheral IV Assessment/Plan Hospital Course 1. Acute bronchitis superimposed on chronic obstructive pulmonary disease. Her O2 saturation on 3 L nasal cannula is 97%. She continues to have a cough with wheezing. I am going to add steroids to her regimen. 2 urinary tract infection with Proteus mirabilis. The organism is sensitive to Levaquin. She is on Levaquin which she will continue. 3. Atrial fibrillation chronic. She is on Xarelto for stroke prevention. Her heart rate is in a controlled . 4. Dementia 5. Generalized weakness. Result Diagram: 11/19/18 0537 11/19/18 0537 Results 24hrs Laboratory Tests Test 11/19/18 05:37 White Blood Count 4.2 #L Red Blood Count 4.56 Hemoglobin 13.1 Hematocrit 41.8 Mean Corpuscular Volume 91.7 Mean Corpuscular Hemoglobin 28.7 L Mean Corpuscular Hemoglobin Concent 31.3 L Red Cell Distribution Width 15.2 H Platelet Count 181 Mean Platelet Volume 10.1 Immature Granulocytes % 0.000 L Neutrophils % 67.1 Lymphocytes % 16.1 Monocytes % 8.4 Eosinophils % 7.9 H Basophils % 0.5 Nucleated Red Blood Cells % 0.0 Immature Granulocytes # 0.000 Neutrophils # 2.8 Lymphocytes # 0.7 L Monocytes # 0.4 Eosinophils # 0.3 Basophils # 0.0 Nucleated Red Blood Cells # 0.0 Sodium Level 142 Potassium Level 3.6 Chloride Level 106 Carbon Dioxide Level 29 Anion Gap 7 Blood Urea Nitrogen 17 Creatinine 0.78 Est Glomerular Filtrat Rate mL/min Glucose Level 115 # Calcium Level 9.3 Phosphorus Level 3.6 Magnesium Level 2.0 Subjective 24 Hr Interval Summary Free Text/Dictation Araceli is being seen in medical follow-up for acute bronchitis and urinary tract infection. She is awake and alert but is still coughing and wheezing. Respiratory: shortness of breath, wheezing Cardiovascular: no complaints Gastrointestinal: no complaints Genitourinary: no complaints Musculoskeletal: no complaints Skin: no complaints Exam/Review of Systems Exam Vitals Vital Signs Date Temp Pulse Resp B/P (MAP) Pulse Ox O2 O2 Flow FiO2 Time Delivery Rate 11/19/18 60 17 98 Nasal 3.0 07:57 Cannula 11/19/18 97.6 136/89 07:48 (105) Intake and Output 11/18/18 11/18/18 11/19/18 1414:59 22:59 06:59 IntakeIntake Total 1000 ml OutputOutput Total 5 ml BalanceBalance 995 ml Constitutional: alert, oriented, frail Psych: confusion Respiratory: congested cough, wheezing Cardiovascular: irregular rhythm Gastrointestinal: soft, non-tender Musculoskeletal: nl extremities to inspection Results Results 24hrs Laboratory Tests Test 11/19/18 05:37 White Blood Count 4.2 #L Red Blood Count 4.56 Hemoglobin 13.1 Hematocrit 41.8 Mean Corpuscular Volume 91.7 Mean Corpuscular Hemoglobin 28.7 L Mean Corpuscular Hemoglobin Concent 31.3 L Red Cell Distribution Width 15.2 H Platelet Count 181 Mean Platelet Volume 10.1 Immature Granulocytes % 0.000 L Neutrophils % 67.1 Lymphocytes % 16.1 Monocytes % 8.4 Eosinophils % 7.9 H Basophils % 0.5 Nucleated Red Blood Cells % 0.0 Immature Granulocytes # 0.000 Neutrophils # 2.8 Lymphocytes # 0.7 L Monocytes # 0.4 Eosinophils # 0.3 Basophils # 0.0 Nucleated Red Blood Cells # 0.0 Sodium Level 142 Potassium Level 3.6 Chloride Level 106 Carbon Dioxide Level 29 Anion Gap 7 Blood Urea Nitrogen 17 Creatinine 0.78 Est Glomerular Filtrat Rate mL/min Glucose Level 115 # Calcium Level 9.3 Phosphorus Level 3.6 Magnesium Level 2.0 Medications Medication Current Medications IV Flush (NS 3 ml) 3 ml PER PROTOCOL IV ; Start 11/16/18 at 14:30 Lorazepam (Ativan) 0.5 mg Q6H PRN IV .ANXIETY Last administered on 11/19/18at 0 2:01; Admin Dose 0.5 MG; Start 11/16/18 at 14:30 Nitroglycerin (Nitroglycerin (Sl Tab) 0.4 Mg) 1 tab Q5M PRN SL .CHEST PAIN; Start 11/16/18 at 14:30 Acetaminophen (Tylenol Tab) 650 mg Q6H PRN PO .PAIN 1-3 OR TEMP; Start 11/16/18 at 14:30 Acetaminophen/ Hydrocodone Bitart ([place] (5/325)) 1 tab Q6H PRN PO .PAIN 4-6 Last administered on 11/16/18 15:59; Admin Dose 1 TAB; Start 11/16/18 at 14:30 Pantoprazole (Protonix Tab) 40 mg DAILY@06 PO Last administered on 11/17/18 06:01; Admin Dose 40 MG; Start 11/17/18 at 06:00 Albuterol/ Ipratropium (Duoneb) 3 ml Q6HWA RESP THERAPY HHN Last administered on 11/19/18 07:57; Admin Dose 3 ML; Start 11/16/18 at 20:00 Celecoxib (Celebrex) 200 mg DAILY PO Last administered on 11/18/18 09:55; Admin Dose 200 MG; Start 11/17/18 at 09:00 Gabapentin (Neurontin) 400 mg BID PO Last administered on 11/18/18 21:00; Admin Dose 400 MG; Start 11/16/18 at 21:00 Sertraline HCl (Zoloft) 100 mg DAILY PO Last administered on 11/18/18 09:55; Admin Dose 100 MG; Start 11/17/18 at 09:00 Atorvastatin Calcium (Lipitor) 20 mg HS PO Last administered on 11/18/18 21:00; Admin Dose 20 MG; Start 11/16/18 at 21:00 Rivaroxaban (Xarelto) 15 mg DAILY PO Last administered on 11/18/18 09:55; Admin Dose 15 MG; Start 11/17/18 at 09:00 Levofloxacin (Levaquin) 500 mg DAILY@06 PO ; Start 11/19/18 at 06:00 Mupirocin (Bactroban) 1 applic BID TOP Last administered on 11/18/18 09:55; Admin Dose 1 APPLIC; Start 11/18/18 at 09:00 Clonidine (Catapres) 0.1 mg TID PO Last administered on 11/18/18 21:00; Admin Dose 0.1 MG; Start 11/18/18 at 10:00 BETTY MCKEON MD Nov 19, 2018 08:13
[2018-11-19] MEDS: METHYLPREDNISOLONE 40 MG INJ IV SCH (09:30)
[2018-11-19] MEDS: CELECOXIB 200 MG CAP PO SCH (09:30)
[2018-11-19] MEDS: GABAPENTIN 400 MG CAP PO SCH ×2 (09:30→20:22)
[2018-11-19] MEDS: RIVAROXABAN 15 MG TABLET PO SCH (09:31)
[2018-11-19] MEDS: MUPIROCIN 2% 22 GM OINT TOP SCH ×2 (09:31→20:23)
[2018-11-19] MEDS: SERTRALINE 100 MG TAB PO SCH (09:31)
[2018-11-19] MEDS: ATORVASTATIN 20 MG TAB PO SCH (20:22)
[2018-11-20 05:00] VITALS: BP 142/59; PULSE 63; RESP 18
[2018-11-20] MEDS: PANTOPRAZOLE (EC) 40 MG TAB PO SCH (06:28)
[2018-11-20] MEDS: LEVOFLOXACIN 500 MG TAB PO SCH (06:28)
[2018-11-20 08:00] VITALS: BP 119/66; PULSE 66; RESP 19
[2018-11-20] MEDS: ALBUTEROL/IPRATROPIUM (NEB) 3 ML AMP HHN SCH ×3 (08:08→19:29)
--- NOTE | 2018-11-20 08:16 | PN ---
Date/Time of Note Date/Time of Note DATE: 11/20/18 TIME: 08:10 Assessment/Plan VTE Prophylaxis Risk score [place]from [facility] [place] risk: 5 SCD applied (from [facility] [place] Yes Pharmacological prophylaxis: rivaroxaban Pharm contraindication: other Lines/Catheters IV Catheter Type (from [facility]): Peripheral IV Assessment/Plan Hospital Course 1. Acute bronchitis superimposed on chronic obstructive pulmonary disease. Her O2 saturation on 3 L nasal cannula is 97%. She continues to have a cough with wheezing and rales. I am going to add steroids to her regimen. Chest x-ray done yesterday shows congestive heart failure with pulmonary vascular congestion and possible pleural effusion. I am going to start her on IV furosemide, echocardiogram, and cardiology consultation. 2 urinary tract infection with Proteus mirabilis. The organism is sensitive to Levaquin. She is on Levaquin which she will continue. 3. Atrial fibrillation chronic. She is on Xarelto for stroke prevention. Her heart rate is in a controlled . 4. Dementia 5. Generalized weakness. Result Diagram: 11/19/18 0537 11/19/18 0537 Subjective 24 Hr Interval Summary Free Text/Dictation Araceli is awake and alert. She continues to cough. She has bilateral lung congestion. Chest x-ray yesterday shows pulmonary vascular congestion. Constitutional: requiring O2 Respiratory: cough, shortness of breath Gastrointestinal: no complaints Genitourinary: no complaints Musculoskeletal: no complaints Exam/Review of Systems Exam Vitals Vital Signs Date Temp Pulse Resp B/P (MAP) Pulse Ox O2 O2 Flow FiO2 Time Delivery Rate 11/20/18 98.4 63 18 142/59 92 Room Air 05:00 (86) 11/20/18 2.0 02:23 Intake and Output 11/19/18 11/19/18 11/20/18 1515:00 23:00 07:00 IntakeIntake Total 300 ml 650 ml 350 ml BalanceBalance 300 ml 650 ml 350 ml Constitutional: alert, oriented, frail Psych: confusion Respiratory: congested cough, crackles/rales, wheezing Cardiovascular: irregular rhythm Gastrointestinal: soft, non-tender Musculoskeletal: nl extremities to inspection Medications Medication Current Medications IV Flush (NS 3 ml) 3 ml PER PROTOCOL IV ; Start 11/16/18 at 14:30 Lorazepam (Ativan) 0.5 mg Q6H PRN IV .ANXIETY Last administered on 11/19/18 02:01; Admin Dose 0.5 MG; Start 11/16/18 at 14:30 Nitroglycerin (Nitroglycerin (Sl Tab) 0.4 Mg) 1 tab Q5M PRN SL .CHEST PAIN; Start 11/16/18 at 14:30 Acetaminophen (Tylenol Tab) 650 mg Q6H PRN PO .PAIN 1-3 OR TEMP; Start 11/16/18 at 14:30 Acetaminophen/ Hydrocodone Bitart ([place] (5/325)) 1 tab Q6H PRN PO .PAIN 4-6 Last administered on 11/16/18 15:59; Admin Dose 1 TAB; Start 11/16/18 at 14:30 Pantoprazole (Protonix Tab) 40 mg DAILY@06 PO Last administered on 11/20/18 06:28; Admin Dose 40 MG; Start 11/17/18 at 06:00 Albuterol/ Ipratropium (Duoneb) 3 ml Q6HWA RESP THERAPY HHN Last administered on 11/20/18 08:08; Admin Dose 3 ML; Start 11/16/18 at 20:00 Gabapentin (Neurontin) 400 mg BID PO Last administered on 11/19/18 20:22; Admin Dose 400 MG; Start 11/16/18 at 21:00 Sertraline HCl (Zoloft) 100 mg DAILY PO Last administered on 11/19/18 09:31; Admin Dose 100 MG; Start 11/17/18 at 09:00 Atorvastatin Calcium (Lipitor) 20 mg HS PO Last administered on 11/19/18 20:22; Admin Dose 20 MG; Start 11/16/18 at 21:00 Rivaroxaban (Xarelto) 15 mg DAILY PO Last administered on 11/19/18 09:31; Admin Dose 15 MG; Start 11/17/18 at 09:00 Levofloxacin (Levaquin) 500 mg DAILY@06 PO Last administered on 11/20/18 06:28; Admin Dose 500 MG; Start 11/19/18 at 06:00 Mupirocin (Bactroban) 1 applic BID TOP Last administered on 11/19/18 20:23; Admin Dose 1 APPLIC; Start 11/18/18 at 09:00 Clonidine (Catapres) 0.1 mg TID PO Last administered on 11/19/18at 20:22; Admin Dose 0.1 MG; Start 11/18/18 at 10:00 Methylprednisolone Sodium Succinate (Solu-Medrol) 40 mg DAILY IV Last administered on 11/19/18at 09:30; Admin Dose 40 MG; Start 11/19/18 at 09:00 Furosemide (Lasix) 40 mg DAILY IV ; Start 11/20/18 at 09:00; Status UNV BETTY MCKEON MD Nov 20, 2018 08:16
--- NOTE | 2018-11-20 08:52 | CONS ---
Assessment/Plan Assessment/Plan Hospital Course (Demo Recall) # Dyspnea: COPD vs. CHF- could be acute diastolic hf. elevated bnp. echo pending, trial of diuresis. watch cr/electrolytes # chronic afib- rate controlled, on xarelto continue # HTN- relatively controlled # h/o PVD- stable on statin # h/o CAD- stable on statin, anticoag Consultation Date/Type/Reason Admit Date/Time Nov 16, 2018 at 15:30 Date of Consultation: Nov 20, 2018 Type of Consult Cardiology Reason for Consultation Hypoxia Requesting Provider: BETTY MCKEON MD Date/Time of Note DATE: 11/20/18 TIME: 08:43 Hx of Present Illness 88 y.o. with h/o chronic afib on xarelto, CAD, RILEY s/p CEA, prior stroke and dementia presented to [facility] 11/16 with cough w sputum, sob, and foul smelling urine. Pt treated for COPD exacerbation/pna has remained on o2. cxr with pleural effusions/congestion. pt started on diuretic. has remained in afib, hrs controlled. denies any chest pain/pressure, palpitaitons, dizziness, bleeding issues. no edema. pt is confused do to chronic dementia, does not provide much history makes inappropriate comments at times as well. unable to obtain/limited do to cognitive impairment Past Medical History Per Dr. Mckeon's note H+P 11/16, reviewed and unchanged PAST MEDICAL HISTORY: Remarkable for emphysema/COPD, atherosclerotic heart disease, chronic fatigue, hyperlipidemia, hypertension, carotid artery disease, scoliosis, menopausal lactose intolerance, peripheral neuropathy, depression, gastroesophageal reflux disease, chronic atrial fibrillation, mild dementia, lumbosacral spine disease. PAST SURGICAL HISTORY: Carotid angiogram with stent placement, back surgery, breast biopsy benign, tonsillectomy, total abdominal hysterectomy with bilateral salpingo-oophorectomy, right hip replacement, carotid endarterectomy. FAMILY HISTORY: Both parents are . Mother of leukemia. Father of coronary artery disease. Medications Current Medications IV Flush (NS 3 ml) 3 ml PER PROTOCOL IV ; Start 11/16/18 at 14:30 Lorazepam (Ativan) 0.5 mg Q6H PRN IV .ANXIETY Last administered on 11/19/18at 02:01; Admin Dose 0.5 MG; Start 11/16/18 at 14:30 Nitroglycerin (Nitroglycerin (Sl Tab) 0.4 Mg) 1 tab Q5M PRN SL .CHEST PAIN; Start 11/16/18 at 14:30 Acetaminophen (Tylenol Tab) 650 mg Q6H PRN PO .PAIN 1-3 OR TEMP; Start 11/16/18 at 14:30 Acetaminophen/ Hydrocodone Bitart ([place] (5/325)) 1 tab Q6H PRN PO .PAIN 4-6 Last administered on 11/16/18 15:59; Admin Dose 1 TAB; Start 11/16/18 at 14:30 Pantoprazole (Protonix Tab) 40 mg DAILY@06 PO Last administered on 11/20/18 06:28; Admin Dose 40 MG; Start 11/17/18 at 06:00 Albuterol/ Ipratropium (Duoneb) 3 ml Q6HWA RESP THERAPY HHN Last administered on 11/20/18 08:08; Admin Dose 3 ML; Start 11/16/18 at 20:00 Gabapentin (Neurontin) 400 mg BID PO Last administered on 11/19/18 20:22; Admin Dose 400 MG; Start 11/16/18 at 21:00 Sertraline HCl (Zoloft) 100 mg DAILY PO Last administered on 11/19/18 09:31; Admin Dose 100 MG; Start 11/17/18 at 09:00 Atorvastatin Calcium (Lipitor) 20 mg HS PO Last administered on 11/19/18 20:22; Admin Dose 20 MG; Start 11/16/18 at 21:00 Rivaroxaban (Xarelto) 15 mg DAILY PO Last administered on 11/19/18 09:31; Admin Dose 15 MG; Start 11/17/18 at 09:00 Levofloxacin (Levaquin) 500 mg DAILY@06 PO Last administered on 11/20/18 06:28; Admin Dose 500 MG; Start 11/19/18 at 06:00 Mupirocin (Bactroban) 1 applic BID TOP Last administered on 11/19/18 20:23; Admin Dose 1 APPLIC; Start 11/18/18 at 09:00 Clonidine (Catapres) 0.1 mg TID PO Last administered on 11/19/18 20:22; Admin Dose 0.1 MG; Start 11/18/18 at 10:00 Methylprednisolone Sodium Succinate (Solu-Medrol) 40 mg DAILY IV Last administered on 11/19/18at 09:30; Admin Dose 40 MG; Start 11/19/18 at 09:00 Furosemide (Lasix) 40 mg DAILY@0600 IV ; Start 11/20/18 at 08:30 Allergies: Coded Allergies: Penicillins (Verified Allergy, Unknown, RASH, 06/17/09) hydromorphone (Verified Allergy, Unknown, RASH, 06/17/09) Social History Smoking Status: Former smoker Exam/Review of Systems Exam Vitals Vital Signs Date Temp Pulse Resp B/P (MAP) Pulse Ox O2 O2 Flow FiO2 Time Delivery Rate 11/20/18 83 16 98 Nasal 3.0 08: Cannula 11/20/18 98.4 142/59 05:00 (86) Intake and Output 11/19/18 11/19/18 11/20/18 1515:00 23:00 07:00 IntakeIntake Total 300 ml 650 ml 350 ml BalanceBalance 300 ml 650 ml 350 ml Exam Constitutional: alert; No oriented Psych: no complaints Head: normocephalic, atraumatic Eyes: nl conjunctiva, EOMI, nl lids ENMT: nl external ears & nose, nl nasal mucosa & septum Neck: supple, non-tender; No jvd Respiratory: diminished breath sounds, wheezing Cardiovascular: nl pulses, irregular rhythm, systolic murmur; No edema Gastrointestinal: soft, non-tender Musculoskeletal: nl extremities to inspection, nl gait and stance Extremities: normal pulses 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, nl speech, nl strength Results Result Diagram: 11/19/1837 11/19/18536 Imaging Imaging cxr report reviewed in emr Medications Medication Current Medications IV Flush (NS 3 ml) 3 ml PER PROTOCOL IV ; Start 11/16/18 at 14:30 Lorazepam (Ativan) 0.5 mg Q6H PRN IV .ANXIETY Last administered on 11/19/18at 02:01; Admin Dose 0.5 MG; Start 11/16/18 at 14:30 Nitroglycerin (Nitroglycerin (Sl Tab) 0.4 Mg) 1 tab Q5M PRN SL .CHEST PAIN; Start 11/16/18 at 14:30 Acetaminophen (Tylenol Tab) 650 mg Q6H PRN PO .PAIN 1-3 OR TEMP; Start 11/16/18 at 14:30 Acetaminophen/ Hydrocodone Bitart ([place] (5/325)) 1 tab Q6H PRN PO .PAIN 4-6 Last administered on 11/16/18 15:59; Admin Dose 1 TAB; Start 11/16/18 at 14:30 Pantoprazole (Protonix Tab) 40 mg DAILY@06 PO Last administered on 11/20/18 06:28; Admin Dose 40 MG; Start 11/17/18 at 06:00 Albuterol/ Ipratropium (Duoneb) 3 ml Q6HWA RESP THERAPY HHN Last administered on 11/20/18 08:08; Admin Dose 3 ML; Start 11/16/18 at 20:00 Gabapentin (Neurontin) 400 mg BID PO Last administered on 11/19/18 20:22; Admin Dose 400 MG; Start 11/16/18 at 21:00 Sertraline HCl (Zoloft) 100 mg DAILY PO Last administered on 11/19/18 09:31; Admin Dose 100 MG; Start 11/17/18 at 09:00 Atorvastatin Calcium (Lipitor) 20 mg HS PO Last administered on 11/19/18 20:22; Admin Dose 20 MG; Start 11/16/18 at 21:00 Rivaroxaban (Xarelto) 15 mg DAILY PO Last administered on 11/19/18 09:31; Admin Dose 15 MG; Start 11/17/18 at 09:00 Levofloxacin (Levaquin) 500 mg DAILY@06 PO Last administered on 11/20/18 06:28; Admin Dose 500 MG; Start 11/19/18 at 06:00 Mupirocin (Bactroban) 1 applic BID TOP Last administered on 11/19/18 20:23; Admin Dose 1 APPLIC; Start 11/18/18 at 09:00 Clonidine (Catapres) 0.1 mg TID PO Last administered on 11/19/18 20:22; Admin Dose 0.1 MG; Start 11/18/18 at 10:00 Methylprednisolone Sodium Succinate (Solu-Medrol) 40 mg DAILY IV Last administered on 11/19/18 09:30; Admin Dose 40 MG; Start 11/19/18 at 09:00 Furosemide (Lasix) 40 mg DAILY@0600 IV ; Start 11/20/18 at 08:30 JACY JOHNSON Nov 20, 2018 08:52
[2018-11-20] MEDS: SERTRALINE 100 MG TAB PO SCH (10:33)
[2018-11-20] MEDS: METHYLPREDNISOLONE 40 MG INJ IV SCH (10:33)
[2018-11-20] MEDS: FUROSEMIDE 40 MG INJ IV SCH (10:33)
[2018-11-20] MEDS: GABAPENTIN 400 MG CAP PO SCH ×2 (10:33→21:14)
[2018-11-20] MEDS: RIVAROXABAN 15 MG TABLET PO SCH (10:34)
[2018-11-20] MEDS: MUPIROCIN 2% 22 GM OINT TOP SCH ×2 (10:34→21:15)
[2018-11-20 11:40] VITALS: BP 127/85; PULSE 78; RESP 18
--- NOTE | 2018-11-20 12:01 | RADRPT ---
Echocardiogram Report Patient Name: Jitendra CLAUDIO ID: [id number] : 1930 (88y 10m)Study Date: 11/20/2018 8:24:27 AM Gender: FAccession #: [id number] Tech: Rober Diaz RUST Location: 627 Ref.Physician: BETTY MCKEON Height(Cm): BSA: Weight(Kg): Quality: AdequateOrder Physician: BETTY MCKEON Account #: Procedures: Echocardiographic Report: Transthoracic echocardiogram with complete 2D, M-Mode, and doppler examination. Indications: Congestive Heart Failure. Measurements: 2D/M Mode Doppler Measurement Value Normal Range Measurement Value Normal Range LVIDd 2D 4.4 [ 3.8 - 5.2 ] cm AV Peak Robert 1.1 [ 100.0 - 170.0 ] cm/sec LVIDs 2D 3.5 [ 2.2 - 3.5 ] cm AV Peak PG 5.0 [ 2.0 - 9.0 ] mmHg LVPWd 2D 1.0 [ 0.6 - 0.9 ] cm LVOT Peak Robert 0.8 [ 70.0 - 110.0 ] cm/sec IVSd 2D 1.1 [ 0.6 - 0.9 ] cm LVOT Peak PG 2.0 [ 2.0 - 6.0 ] mmHg AoR Diam 2D 2.8 [ 2.3 - 3.1 ] cm MV E Peak Robert 1.1 [ 60.0 - 130.0 ] cm/sec EDV 2D 90.1 [ 46.0 - 106.0 ] ml MV A Peak Robert 0.6 [ 100.0 - 120.0 ] cm/sec ESV 2D 50.5 [ 14.0 - 42.0 ] ml MV E/A 1.9 [ 0.8 - 1.5 ] ratio EF 2D 44.0 [ 54.0 - 74.0 ] percent MV Decel Time 194 [ 104 - 258 ] msec LA Dimen 2D 4.1 [ 2.7 - 3.8 ] cm Lat E` Robert 0.1 [ 10.0 - 15.0 ] cm/sec Lateral E/E` 15.9 [ 1.0 - 2.0 ] ratio Med E` Robert 0.1 cm/sec MV E/A 1.9 [ 0.8 - 1.5 ] ratio TR Peak Robert 3.9 [ 100.0 - 280.0 ] cm/sec TR Peak PG 62.0 mmHg RVSP 77.0 [ 10.0 - 36.0 ] mmHg RA Pressure 15.0 mmHg Findings: Left Ventricle: Normal left ventricular cavity size. Mild concentric left ventricular hypertrophy. Mild global left ventricular systolic dysfunction. Ejection fraction is visually estimated at 45-50 %. Tissue Doppler/Mitral Doppler indices are indeterminate in this study due to the presence of atrial fibrillation. Right Ventricle: Normal right ventricular size. Normal right ventricular systolic function. Flattened Septum in diastole ("D"shaped left ventricle) consistent with RV volume overload. Left Atrium: There is mild enlargement of left atrium. Right Atrium: There is mild enlargement of right atrium. Mitral Valve: Normal appearance of the mitral valve. Mild mitral annular calcification. There is trace to mild mitral valve regurgitation. Aortic Valve: No significant aortic stenosis or insufficiency. Aortic cusps appear mildly calcified. Trace aortic valve regurgitation. Tricuspid Valve: Right ventricular systolic pressure is consistent with severe pulmonary hypertension. The estimated Peak RVSP is 77 mmHg. There is moderate to severe tricuspid regurgitation. Pulmonic Valve: Normal pulmonic valve appearance. Pericardium: Normal pericardium with no significant pericardial effusion. Aorta: Normal aortic root. IVC: Dilated IVC without respiratory collapse consistent with elevated right atrial pressure. Conclusions: Normal left ventricular cavity size. Mild concentric left ventricular hypertrophy. Mild global left ventricular systolic dysfunction. Ejection fraction is visually estimated at 45-50 %. Tissue Doppler/Mitral Doppler indices are indeterminate in this study due to the presence of atrial fibrillation. Normal right ventricular size. Normal right ventricular systolic function. Flattened Septum in diastole ("D"shaped left ventricle) consistent with RV volume overload. There is mild enlargement of left atrium. There is mild enlargement of right atrium. Right ventricular systolic pressure is consistent with severe pulmonary hypertension. The estimated Peak RVSP is 77 mmHg. There is moderate to severe tricuspid regurgitation. Normal pericardium with no significant pericardial effusion. Dilated IVC without respiratory collapse consistent with elevated right atrial pressure. No Vegetation, masses, or thrombi seen. Electronically Signed By: Kwaku Urban 2018-11-20 12:01:27 PDT
[2018-11-20 15:30] VITALS: BP 130/78; PULSE 79; RESP 19
[2018-11-20 20:16] VITALS: BP 125/77; PULSE 78; RESP 20
[2018-11-20] MEDS: ATORVASTATIN 20 MG TAB PO SCH (21:14)
[2018-11-20] MEDS: LORAZEPAM 2 MG INJ IV PRN (21:16)
[2018-11-21] VITALS (7 sets, daily range): BP systolic 118–170; BP diastolic 56–82; PULSE 62–89; RESP 18–22
[2018-11-21] MEDS: LEVOFLOXACIN 500 MG TAB PO SCH (05:09)
[2018-11-21] MEDS: PANTOPRAZOLE (EC) 40 MG TAB PO SCH (05:09)
[2018-11-21] MEDS: FUROSEMIDE 40 MG INJ IV SCH (05:14)
--- NOTE | 2018-11-21 07:03 | CONS ---
Assessment/Plan Assessment/Plan Hospital Course (Demo Recall) 1) COPD exacerbation and bronchitis on levaquin initial procalcitonin was neg, to repeat get nasal for viral PCR sputum cx was just collected get nasal for MRSA 11/18 - nasal has MRSA but pt has improved this likely represents colonization, recommend 10 days of bactroban to nares finish her levaquin (7 day course) will change levaquin to po form 11/19 - no new problems, on levaquin day 07/22 11/21 - day 6 of levaquin viral PCR of nares was neg 2) probable UTI GNR noted in urine cx normal WBC, await final sensi's renal function is good 11/18 - pt has proteus in urine, sensi's are not available till tomorrow continue with levaquin 11/19 - levaquin is sensitive to her proteus, day 07/22 of treatment 11/21 - can d/c levaquin after tomorrow's dose 3) 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 and wondered if she was in a care home house Exam/Review of Systems Exam Vitals Vital Signs Date Temp Pulse Resp B/P (MAP) Pulse Ox O2 O2 Flow FiO2 Time Delivery Rate 11/21/18 98.2 78 18 118/56 98 04:29 (76) 11/21/18 2.0 28 03:50 11/20/18 Nasal 20:00 Cannula Intake and Output 11/20/18 11/20/18 11/21/18 1515:00 23:00 07:00 IntakeIntake Total 600 ml 450 ml OutputOutput Total 3 ml 1 ml BalanceBalance 597 ml 449 ml Constitutional: alert Eyes: nl sclera ENMT: mucosa pink and moist Respiratory: clear to auscultation Cardiovascular: regular rate and rhythm Gastrointestinal: soft, non-tender Results Result Diagram: 11/21/18 0539 11/21/18 0539 Results 24hrs Laboratory Tests Test 11/20/18 08:46 11/21/18 05:39 Lab Scanned Report REFERENCE LAB White Blood Count 6.7 # Red Blood Count 4.93 Hemoglobin 14.0 Hematocrit 44.4 Mean Corpuscular Volume 90.1 Mean Corpuscular Hemoglobin 28.4 L Mean Corpuscular Hemoglobin Concent 31.5 L Red Cell Distribution Width 15.0 H Platelet Count 192 Mean Platelet Volume 9.9 Immature Granulocytes % 0.300 Neutrophils % 78.3 H Lymphocytes % 12.8 L Monocytes % 8.2 Eosinophils % 0.3 Basophils % 0.1 Nucleated Red Blood Cells % 0.0 Immature Granulocytes # 0.020 Neutrophils # 5.2 Lymphocytes # 0.9 Monocytes # 0.6 Eosinophils # 0.0 Basophils # 0.0 Nucleated Red Blood Cells # 0.0 Sodium Level 143 Potassium Level 3.9 Chloride Level 104 Carbon Dioxide Level 29 Anion Gap 10 Blood Urea Nitrogen 21 H Creatinine 0.87 Est Glomerular Filtrat Rate mL/min Glucose Level 123 Calcium Level 9.7 Total Bilirubin 0.7 Direct Bilirubin 0.00 Indirect Bilirubin 0.7 Aspartate Amino Transf (AST/SGOT) 20 Alanine Aminotransferase (ALT/SGPT) 26 Alkaline Phosphatase 44 Total Protein 6.7 Albumin 3.8 Globulin 2.90 Albumin/Globulin Ratio 1.31 Medications Medication Current Medications IV Flush (NS 3 ml) 3 ml PER PROTOCOL IV ; Start 11/16/18 at 14:30 Lorazepam (Ativan) 0.5 mg Q6H PRN IV .ANXIETY Last administered on 11/20/18at 21:16; Admin Dose 0.5 MG; Start 11/16/18 at 14:30 Nitroglycerin (Nitroglycerin (Sl Tab) 0.4 Mg) 1 tab Q5M PRN SL .CHEST PAIN; Start 11/16/18 at 14:30 Acetaminophen (Tylenol Tab) 650 mg Q6H PRN PO .PAIN 1-3 OR TEMP; Start 11/16/18 at 14:30 Acetaminophen/ Hydrocodone Bitart ([place] (5/325)) 1 tab Q6H PRN PO .PAIN 4-6 Last administered on 11/16/18 15:59; Admin Dose 1 TAB; Start 11/16/18 at 14:30 Pantoprazole (Protonix Tab) 40 mg DAILY@06 PO Last administered on 11/21/18 05:09; Admin Dose 40 MG; Start 11/17/18 at 06:00 Albuterol/ Ipratropium (Duoneb) 3 ml Q6HWA RESP THERAPY HHN Last administered on 11/20/18 19:29; Admin Dose 3 ML; Start 11/16/18 at 20:00 Gabapentin (Neurontin) 400 mg BID PO Last administered on 11/20/18 21:14; Admin Dose 400 MG; Start 11/16/18 at 21:00 Sertraline HCl (Zoloft) 100 mg DAILY PO Last administered on 11/20/18 10:33; Admin Dose 100 MG; Start 11/17/18 at 09:00 Atorvastatin Calcium (Lipitor) 20 mg HS PO Last administered on 11/20/18 21:14; Admin Dose 20 MG; Start 11/16/18 at 21:00 Rivaroxaban (Xarelto) 15 mg DAILY PO Last administered on 11/20/18 10:34; Admin Dose 15 MG; Start 11/17/18 at 09:00 Levofloxacin (Levaquin) 500 mg DAILY@06 PO Last administered on 11/21/18 05:09; Admin Dose 500 MG; Start 11/19/18 at 06:00 Mupirocin (Bactroban) 1 applic BID TOP Last administered on 11/20/18 21:15; Admin Dose 1 APPLIC; Start 11/18/18 at 09:00 Clonidine (Catapres) 0.1 mg TID PO Last administered on 11/20/18 16:36; Admin Dose 0.1 MG; Start 11/18/18 at 10:00 Methylprednisolone Sodium Succinate (Solu-Medrol) 40 mg DAILY IV Last administered on 11/20/18 10:33; Admin Dose 40 MG; Start 11/19/18 at 09:00 Furosemide (Lasix) 40 mg DAILY@0600 IV Last administered on 11/21/18 05:14; Admin Dose 40 MG; Start 11/20/18 at 08:30 LEXIE LEAVITT MD Nov 21, 2018 07:03
[2018-11-21] MEDS: ALBUTEROL/IPRATROPIUM (NEB) 3 ML AMP HHN SCH ×3 (07:41→20:52)
[2018-11-21] MEDS: SERTRALINE 100 MG TAB PO SCH (08:28)
[2018-11-21] MEDS: RIVAROXABAN 15 MG TABLET PO SCH (08:28)
[2018-11-21] MEDS: GABAPENTIN 400 MG CAP PO SCH ×2 (08:28→21:27)
--- NOTE | 2018-11-21 08:35 | PN ---
Date/Time of Note Date/Time of Note DATE: 11/21/18 TIME: 08:25 Assessment/Plan VTE Prophylaxis Risk score (from Ns)>0 risk: 4 SCD applied (from [facility]): Yes SCD contraindicated: low risk/ambulating Pharmacological prophylaxis: rivaroxaban Pharm contraindication: other Lines/Catheters IV [facility] Peripheral IV Assessment/Plan Hospital Course 1. Acute bronchitis superimposed on chronic obstructive pulmonary disease. Her O2 saturation on 3 L nasal cannula is 97%. She continues to have a cough with less wheezing and rales. I am going to decrease steroid dose. Chest x-ray done 2 days ago shows congestive heart failure with pulmonary vascular congestion and possible pleural effusion. I am going to continue IV furosemide, I will order a p CXR today . 2 urinary tract infection with Proteus mirabilis. The organism is sensitive to Levaquin. She is on Levaquin which she will continue. 3. Atrial fibrillation chronic. She is on Xarelto for stroke prevention. Her heart rate is in a controlled . 4. Dementia 5. Generalized weakness. Result Diagram: 11/21/18 0539 11/21/18 0539 Results 24hrs Laboratory Tests Test 11/20/18 08:46 11/21/18 05:39 Lab Scanned Report REFERENCE LAB White Blood Count 6.7 # Red Blood Count 4.93 Hemoglobin 14.0 Hematocrit 44.4 Mean Corpuscular Volume 90.1 Mean Corpuscular Hemoglobin 28.4 L Mean Corpuscular Hemoglobin Concent 31.5 L Red Cell Distribution Width 15.0 H Platelet Count 192 Mean Platelet Volume 9.9 Immature Granulocytes % 0.300 Neutrophils % 78.3 H Lymphocytes % 12.8 L Monocytes % 8.2 Eosinophils % 0.3 Basophils % 0.1 Nucleated Red Blood Cells % 0.0 Immature Granulocytes # 0.020 Neutrophils # 5.2 Lymphocytes # 0.9 Monocytes # 0.6 Eosinophils # 0.0 Basophils # 0.0 Nucleated Red Blood Cells # 0.0 Sodium Level 143 Potassium Level 3.9 Chloride Level 104 Carbon Dioxide Level 29 Anion Gap 10 Blood Urea Nitrogen 21 H Creatinine 0.87 Est Glomerular Filtrat Rate mL/min Glucose Level 123 Calcium Level 9.7 Total Bilirubin 0.7 Direct Bilirubin 0.00 Indirect Bilirubin 0.7 Aspartate Amino Transf (AST/SGOT) 20 Alanine Aminotransferase (ALT/SGPT) 26 Alkaline Phosphatase 44 Total Protein 6.7 Albumin 3.8 Globulin 2.90 Albumin/Globulin Ratio 1.31 Subjective 24 Hr Interval Summary Free Text/Dictation She says that she feels better and wants to go home. She still has a slight cough. Less wheezing. Constitutional: no complaints Respiratory: cough, wheezing Cardiovascular: no complaints Gastrointestinal: no complaints Genitourinary: no complaints Musculoskeletal: no complaints Neurologic: no complaints Exam/Review of Systems Exam Vitals Vital Signs Date Temp Pulse Resp B/P (MAP) Pulse Ox O2 O2 Flow FiO2 Time Delivery Rate 11/21/18 98.0 66 22 170/78 96 Nasal 2.0 07:56 (108) Cannula 11/21/18 28 03:50 Intake and Output 11/20/18 11/20/18 11/21/18 1515:00 23:00 07:00 IntakeIntake Total 600 ml 450 ml OutputOutput Total 3 ml 1 ml BalanceBalance 597 ml 449 ml Constitutional: alert, oriented Neck: supple, non-tender Respiratory: congested cough, wheezing Cardiovascular: irregular rhythm Gastrointestinal: soft, non-tender Musculoskeletal: nl extremities to inspection Results Results 24hrs Laboratory Tests Test 11/20/18 08:46 11/21/18 05:39 Lab Scanned Report REFERENCE LAB White Blood Count 6.7 # Red Blood Count 4.93 Hemoglobin 14.0 Hematocrit 44.4 Mean Corpuscular Volume 90.1 Mean Corpuscular Hemoglobin 28.4 L Mean Corpuscular Hemoglobin Concent 31.5 L Red Cell Distribution Width 15.0 H Platelet Count 192 Mean Platelet Volume 9.9 Immature Granulocytes % 0.300 Neutrophils % 78.3 H Lymphocytes % 12.8 L Monocytes % 8.2 Eosinophils % 0.3 Basophils % 0.1 Nucleated Red Blood Cells % 0.0 Immature Granulocytes # 0.020 Neutrophils # 5.2 Lymphocytes # 0.9 Monocytes # 0.6 Eosinophils # 0.0 Basophils # 0.0 Nucleated Red Blood Cells # 0.0 Sodium Level 143 Potassium Level 3.9 Chloride Level 104 Carbon Dioxide Level 29 Anion Gap 10 Blood Urea Nitrogen 21 H Creatinine 0.87 Est Glomerular Filtrat Rate mL/min Glucose Level 123 Calcium Level 9.7 Total Bilirubin 0.7 Direct Bilirubin 0.00 Indirect Bilirubin 0.7 Aspartate Amino Transf (AST/SGOT) 20 Alanine Aminotransferase (ALT/SGPT) 26 Alkaline Phosphatase 44 Total Protein 6.7 Albumin 3.8 Globulin 2.90 Albumin/Globulin Ratio 1.31 Medications Medication Current Medications IV Flush (NS 3 ml) 3 ml PER PROTOCOL IV ; Start 11/16/18 at 14:30 Lorazepam (Ativan) 0.5 mg Q6H PRN IV .ANXIETY Last administered on 11/20/18 21:16; Admin Dose 0.5 MG; Start 11/16/18 at 14:30 Nitroglycerin (Nitroglycerin (Sl Tab) 0.4 Mg) 1 tab Q5M PRN SL .CHEST PAIN; Start 11/16/18 at 14:30 Acetaminophen (Tylenol Tab) 650 mg Q6H PRN PO .PAIN 1-3 OR TEMP; Start 11/16/18 at 14:30 Acetaminophen/ Hydrocodone Bitart ([place] (5/325)) 1 tab Q6H PRN PO .PAIN 4-6 Last administered on 11/16/18 15:59; Admin Dose 1 TAB; Start 11/16/18 at 14:30 Pantoprazole (Protonix Tab) 40 mg DAILY@06 PO Last administered on 11/21/18 05:09; Admin Dose 40 MG; Start 11/17/18 at 06:00 Albuterol/ Ipratropium (Duoneb) 3 ml Q6HWA RESP THERAPY HHN Last administered on 11/21/18 07:41; Admin Dose 3 ML; Start 11/16/18 at 20:00 Gabapentin (Neurontin) 400 mg BID PO Last administered on 11/20/18 21:14; Admin Dose 400 MG; Start 11/16/18 at 21:00 Sertraline HCl (Zoloft) 100 mg DAILY PO Last administered on 11/20/18 10:33; Admin Dose 100 MG; Start 11/17/18 at 09:00 Atorvastatin Calcium (Lipitor) 20 mg HS PO Last administered on 11/20/18 21:14; Admin Dose 20 MG; Start 11/16/18 at 21:00 Rivaroxaban (Xarelto) 15 mg DAILY PO Last administered on 11/20/18 10:34; Admin Dose 15 MG; Start 11/17/18 at 09:00 Levofloxacin (Levaquin) 500 mg DAILY@06 PO Last administered on 11/21/18 05:09; Admin Dose 500 MG; Start 11/19/18 at 06:00 Mupirocin (Bactroban) 1 applic BID TOP Last administered on 11/20/18at 21:15; Admin Dose 1 APPLIC; Start 11/18/18 at 09:00 Clonidine (Catapres) 0.1 mg TID PO Last administered on 11/20/18at 16:36; Admin Dose 0.1 MG; Start 11/18/18 at 10:00 Furosemide (Lasix) 40 mg DAILY@0600 IV Last administered on 11/21/18at 05:14; Admin Dose 40 MG; Start 11/20/18 at 08:30 Methylprednisolone Sodium Succinate (Solu-Medrol) 20 mg DAILY IV ; Start 11/21/18 at 09:00; Status UNBETTY LANGLEY MD Nov 21, 2018 08:35
[2018-11-21] MEDS: METHYLPREDNISOLONE 40 MG INJ IV SCH (08:57)
[2018-11-21] MEDS: MUPIROCIN 2% 22 GM OINT TOP SCH ×2 (09:50→21:27)
[2018-11-21] MEDS: LOSARTAN 25 MG TAB PO SCH (09:51)
--- NOTE | 2018-11-21 11:19 | CONS ---
Assessment/Plan Assessment/Plan Hospital Course (Demo Recall) # Dyspnea: COPD/bronchitis with underlying acute chronic systolic CHF- elevated bnp.LVEF mildly decreased, has severe pulm htn likely 2/2 pulm disease. cont diuresis as tolerated.. watch cr/electrolytes cont copd/bronchitis mgmt per primary # chronic afib- rate controlled, on xarelto continue # HTN- relatively controlled # h/o PVD- stable on statin # h/o CAD- stable on statin, anticoag - cont iv lasix, watch cr/electrolytes. slight uptrend. - cont xarelto - cont bp meds - may need beta naeem, if bp not controlled can add Consultation Date/Type/Reason Admit Date/Time Nov 16, 2018 at 15:30 Initial Consult Date 11/20/18 Type of Consult Cardiology Requesting Provider: BETTY MCKEON MD Date/Time of Note DATE: 11/21/18 TIME: 11:15 24 HR Interval Summary Free Text/Dictation sleeping this am. respiratory status stable, still requiring o2 with cough. no chest pain/pressure. no palpitations tele reviewed: afib with lbbb intermittent. rate controlled Detailed Summary Additional Comments unable to obtain ROS do to AMS Exam/Review of Systems Exam Vitals Vital Signs Date Temp Pulse Resp B/P (MAP) Pulse Ox O2 O2 Flow FiO2 Time Delivery Rate 11/21/18 66 149/67 09:51 (94) 11/21/18 Nasal 2.0 08:00 Cannula 11/21/18 98.0 22 96 07:56 11/21/18 28 03:50 Intake and Output 11/20/18 11/20/18 11/21/18 1515:00 23:00 07:00 IntakeIntake Total 600 ml 450 ml OutputOutput Total 3 ml 1 ml BalanceBalance 597 ml 449 ml Constitutional: alert; No oriented Psych: no complaints Head: normocephalic, atraumatic Eyes: nl conjunctiva, EOMI, nl lids ENMT: nl external ears & nose, nl nasal mucosa & septum Neck: supple, non-tender; No jvd Respiratory: diminished breath sounds, wheezing Cardiovascular: nl pulses, irregular rhythm, systolic murmur; No edema Gastrointestinal: soft, non-tender Musculoskeletal: nl extremities to inspection, nl gait and stance Extremities: normal pulses Neurological: SPRING UPHOLSTERER II-XII intact, nl speech, nl strength Results Result Diagram: 11/21/18 0539 11/21/18 0539 Results 24hrs Laboratory Tests Test 11/21/18 05:39 White Blood Count 6.7 # Red Blood Count 4.93 Hemoglobin 14.0 Hematocrit 44.4 Mean Corpuscular Volume 90.1 Mean Corpuscular Hemoglobin 28.4 L Mean Corpuscular Hemoglobin Concent 31.5 L Red Cell Distribution Width 15.0 H Platelet Count 192 Mean Platelet Volume 9.9 Immature Granulocytes % 0.300 Neutrophils % 78.3 H Lymphocytes % 12.8 L Monocytes % 8.2 Eosinophils % 0.3 Basophils % 0.1 Nucleated Red Blood Cells % 0.0 Immature Granulocytes # 0.020 Neutrophils # 5.2 Lymphocytes # 0.9 Monocytes # 0.6 Eosinophils # 0.0 Basophils # 0.0 Nucleated Red Blood Cells # 0.0 Sodium Level 143 Potassium Level 3.9 Chloride Level 104 Carbon Dioxide Level 29 Anion Gap 10 Blood Urea Nitrogen 21 H Creatinine 0.87 Est Glomerular Filtrat Rate mL/min Glucose Level 123 Calcium Level 9.7 Total Bilirubin 0.7 Direct Bilirubin 0.00 Indirect Bilirubin 0.7 Aspartate Amino Transf (AST/SGOT) 20 Alanine Aminotransferase (ALT/SGPT) 26 Alkaline Phosphatase 44 Total Protein 6.7 Albumin 3.8 Globulin 2.90 Albumin/Globulin Ratio 1.31 Imaging Imaging cxr report reviewed in emr Medications Medication Current Medications IV Flush (NS 3 ml) 3 ml PER PROTOCOL IV ; Start 11/16/18 at 14:30 Lorazepam (Ativan) 0.5 mg Q6H PRN IV .ANXIETY Last administered on 11/20/18at 21:16; Admin Dose 0.5 MG; Start 11/16/18 at 14:30 Nitroglycerin (Nitroglycerin (Sl Tab) 0.4 Mg) 1 tab Q5M PRN SL .CHEST PAIN; Start 11/16/18 at 14:30 Acetaminophen (Tylenol Tab) 650 mg Q6H PRN PO .PAIN 1-3 OR TEMP; Start 11/16/18 at 14:30 Acetaminophen/ Hydrocodone Bitart ([place] (5/325)) 1 tab Q6H PRN PO .PAIN 4-6 Last administered on 11/16/18at 15:59; Admin Dose 1 TAB; Start 11/16/18 at 14:30 Pantoprazole (Protonix Tab) 40 mg DAILY@06 PO Last administered on 11/21/18 05:09; Admin Dose 40 MG; Start 11/17/18 at 06:00 Albuterol/ Ipratropium (Duoneb) 3 ml Q6HWA RESP THERAPY HHN Last administered on 11/21/18 07:41; Admin Dose 3 ML; Start 11/16/18 at 20:00 Gabapentin (Neurontin) 400 mg BID PO Last administered on 11/21/18 08:28; Admin Dose 400 MG; Start 11/16/18 at 21:00 Sertraline HCl (Zoloft) 100 mg DAILY PO Last administered on 11/21/18 08:28; Admin Dose 100 MG; Start 11/17/18 at 09:00 Atorvastatin Calcium (Lipitor) 20 mg HS PO Last administered on 11/20/18 21:14; Admin Dose 20 MG; Start 11/16/18 at 21:00 Rivaroxaban (Xarelto) 15 mg DAILY PO Last administered on 11/21/18 08:28; Admin Dose 15 MG; Start 11/17/18 at 09:00 Levofloxacin (Levaquin) 500 mg DAILY@06 PO Last administered on 11/21/18 05:09; Admin Dose 500 MG; Start 11/19/18 at 06:00 Mupirocin (Bactroban) 1 applic BID TOP Last administered on 11/21/18 09:50; Admin Dose 1 APPLIC; Start 11/18/18 at 09:00 Furosemide (Lasix) 40 mg DAILY@0600 IV Last administered on 11/21/18 05:14; Admin Dose 40 MG; Start 11/20/18 at 08:30 Methylprednisolone Sodium Succinate (Solu-Medrol) 20 mg DAILY IV Last administered on 11/21/18 08:57; Admin Dose 20 MG; Start 11/21/18 at 09:00 Clonidine (Catapres) 0.1 mg TID PRN PO ELEVATED BLOOD PRESSURE Last administered on 11/21/18 08:56; Admin Dose 0.1 MG; Start 11/21/18 at 08:30 Losartan Potassium (Cozaar) 25 mg DAILY PO Last administered on 11/21/18 09:51; Admin Dose 25 MG; Start 11/21/18 at 09:00 JACY JOHNSON Nov 21, 2018 11:19
[2018-11-21] MEDS: ATORVASTATIN 20 MG TAB PO SCH (21:27)
[2018-11-22] VITALS (7 sets, daily range): BP systolic 122–150; BP diastolic 65–80; PULSE 57–89; RESP 18–20
[2018-11-22] MEDS: FUROSEMIDE 40 MG INJ IV SCH (06:33)
[2018-11-22] MEDS: PANTOPRAZOLE (EC) 40 MG TAB PO SCH (06:34)
[2018-11-22] MEDS: LEVOFLOXACIN 500 MG TAB PO SCH (06:34)
[2018-11-22] MEDS: LOSARTAN 25 MG TAB PO SCH (08:23)
[2018-11-22] MEDS: METHYLPREDNISOLONE 40 MG INJ IV SCH (08:23)
[2018-11-22] MEDS: RIVAROXABAN 15 MG TABLET PO SCH (08:23)
[2018-11-22] MEDS: GABAPENTIN 400 MG CAP PO SCH ×2 (08:23→21:59)
[2018-11-22] MEDS: SERTRALINE 100 MG TAB PO SCH (08:23)
[2018-11-22] MEDS: MUPIROCIN 2% 22 GM OINT TOP SCH ×2 (08:24→21:59)
[2018-11-22] MEDS: ALBUTEROL/IPRATROPIUM (NEB) 3 ML AMP HHN SCH ×3 (08:38→20:24)
--- NOTE | 2018-11-22 08:57 | CONS ---
Assessment/Plan Assessment/Plan Hospital Course (Demo Recall) # Dyspnea: COPD/bronchitis with underlying acute chronic systolic CHF- elevated bnp.LVEF mildly decreased, has severe pulm htn likely 2/2 pulm disease. cont diuresis as tolerated.. watch cr/electrolytes cont copd/bronchitis mgmt per primary # chronic afib- rate controlled, on xarelto continue # HTN- relatively controlled # h/o PVD- stable on statin # h/o CAD- stable on statin, anticoag - cont furosemide, ok to switch to po. watch cr/electrolytes. - cont xarelto - cont bp meds - hold off bb given bradycardia at times on tele and copd Consultation Date/Type/Reason Admit Date/Time Nov 16, 2018 at 15:30 Initial Consult Date 11/20/18 Type of Consult Cardiology Requesting Provider: BETTY MCKEON MD Date/Time of Note DATE: 11/22/18 TIME: 08:55 24 HR Interval Summary Free Text/Dictation no acute events. pt states remains with cough, phlegm. sob stable. no chest pain/pressure. furnace caretaker at bedside, does not report any additional significant changes. tele reviewed: afib rate controlled. intermittent lbbb Detailed Summary Eyes: no complaints ENT: no complaints Respiratory: cough, shortness of breath Cardiovascular: no complaints Exam/Review of Systems Exam Vitals Vital Signs Date Temp Pulse Resp B/P (MAP) Pulse Ox O2 O2 Flow FiO2 Time Delivery Rate 11/22/18 76 20 91 Nasal 2.0 08:38 Cannula 11/22/18 98.1 150/77 07:44 (101) 11/21/18 28 03:50 Intake and Output 11/21/18 11/21/18 11/22/18 1515:00 23:00 07:00 IntakeIntake Total 350 ml 700 ml 400 ml BalanceBalance 350 ml 700 ml 400 ml Exam Constitutional: alert; No oriented Psych: no complaints Head: normocephalic, atraumatic Eyes: nl conjunctiva, EOMI, nl lids ENMT: nl external ears & nose, nl nasal mucosa & septum Neck: supple, non-tender; No jvd Respiratory: diminished breath sounds, wheezing Cardiovascular: nl pulses, irregular rhythm, systolic murmur; No edema Gastrointestinal: soft, non-tender Musculoskeletal: nl extremities to inspection, nl gait and stance Extremities: normal pulses Neurological: INSOLE LIP TURNER II-XII intact, nl speech, nl strength Results Result Diagram: 11/22/18 0530 11/22/18 0530 Results 24hrs Laboratory Tests Test 11/22/18 05:30 White Blood Count 8.1 # Red Blood Count 5.07 Hemoglobin 14.4 Hematocrit 45.7 Mean Corpuscular Volume 90.1 Mean Corpuscular Hemoglobin 28.4 L Mean Corpuscular Hemoglobin Concent 31.5 L Red Cell Distribution Width 14.8 H Platelet Count 209 Mean Platelet Volume 10.5 H Immature Granulocytes % 0.400 Neutrophils % 76.8 Lymphocytes % 13.2 L Monocytes % 8.8 Eosinophils % 0.7 Basophils % 0.1 Nucleated Red Blood Cells % 0.0 Immature Granulocytes # 0.030 Neutrophils # 6.2 Lymphocytes # 1.1 Monocytes # 0.7 Eosinophils # 0.1 Basophils # 0.0 Nucleated Red Blood Cells # 0.0 Sodium Level 137 Potassium Level 3.8 Chloride Level 103 Carbon Dioxide Level 29 Anion Gap 5 Blood Urea Nitrogen 23 H Creatinine 0.70 Est Glomerular Filtrat Rate mL/min Glucose Level 102 Calcium Level 9.8 Total Bilirubin 0.7 Direct Bilirubin 0.00 Indirect Bilirubin 0.7 Aspartate Amino Transf (AST/SGOT) 27 Alanine Aminotransferase (ALT/SGPT) 23 Alkaline Phosphatase 43 Total Protein 6.8 Albumin 3.7 Globulin 3.10 Albumin/Globulin Ratio 1.19 Imaging Imaging cxr report reviewed in emr Medications Medication Current Medications IV Flush (NS 3 ml) 3 ml PER PROTOCOL IV ; Start 11/16/18 at 14:30 Lorazepam (Ativan) 0.5 mg Q6H PRN IV .ANXIETY Last administered on 11/20/18at 21:16; Admin Dose 0.5 MG; Start 11/16/18 at 14:30 Nitroglycerin (Nitroglycerin (Sl Tab) 0.4 Mg) 1 tab Q5M PRN SL .CHEST PAIN; Start 11/16/18 at 14:30 Acetaminophen (Tylenol Tab) 650 mg Q6H PRN PO .PAIN 1-3 OR TEMP; Start 11/16/18 at 14:30 Acetaminophen/ Hydrocodone Bitart ([place] (5/325)) 1 tab Q6H PRN PO .PAIN 4-6 Last administered on 11/16/18at 15:59; Admin Dose 1 TAB; Start 11/16/18 at 14:30 Pantoprazole (Protonix Tab) 40 mg DAILY@06 PO Last administered on 11/22/18 06:34; Admin Dose 40 MG; Start 11/17/18 at 06:00 Albuterol/ Ipratropium (Duoneb) 3 ml Q6HWA RESP THERAPY HHN Last administered on 11/22/18 08:38; Admin Dose 3 ML; Start 11/16/18 at 20:00 Gabapentin (Neurontin) 400 mg BID PO Last administered on 11/22/18 08:23; Admin Dose 400 MG; Start 11/16/18 at 21:00 Sertraline HCl (Zoloft) 100 mg DAILY PO Last administered on 11/22/18 08:23; Admin Dose 100 MG; Start 11/17/18 at 09:00 Atorvastatin Calcium (Lipitor) 20 mg HS PO Last administered on 11/21/18 21:27; Admin Dose 20 MG; Start 11/16/18 at 21:00 Rivaroxaban (Xarelto) 15 mg DAILY PO Last administered on 11/22/18 08:23; Admin Dose 15 MG; Start 11/17/18 at 09:00 Levofloxacin (Levaquin) 500 mg DAILY@06 PO Last administered on 11/22/18 06:34; Admin Dose 500 MG; Start 11/19/18 at 06:00 Mupirocin (Bactroban) 1 applic BID TOP Last administered on 11/22/18 08:24; Admin Dose 1 APPLIC; Start 11/18/18 at 09:00 Furosemide (Lasix) 40 mg DAILY@0600 IV Last administered on 11/22/18 06:33; Admin Dose 40 MG; Start 11/20/18 at 08:30 Methylprednisolone Sodium Succinate (Solu-Medrol) 20 mg DAILY IV Last administered on 11/22/18 08:23; Admin Dose 20 MG; Start 11/21/18 at 09:00 Clonidine (Catapres) 0.1 mg TID PRN PO ELEVATED BLOOD PRESSURE Last administered on 11/21/18 08:56; Admin Dose 0.1 MG; Start 11/21/18 at 08:30 Losartan Potassium (Cozaar) 25 mg DAILY PO Last administered on 11/22/18 08:23; Admin Dose 25 MG; Start 11/21/18 at 09:00 JACY JOHNSON Nov 22, 2018 08:57
--- NOTE | 2018-11-22 09:24 | PN ---
Date/Time of Note Date/Time of Note DATE: 11/22/18 TIME: 09:20 Assessment/Plan VTE Prophylaxis Risk score (from [facility])>0 risk: 5 SCD applied (from [facility] [place] No SCD contraindicated: low risk/ambulating Pharmacological prophylaxis: rivaroxaban Pharm contraindication: other Lines/Catheters [facility] Saline Lock Urinary Cath still in place: No Assessment/Plan Hospital Course 1. Acute bronchitis / CHF , superimposed on chronic obstructive pulmonary disease. Her O2 saturation on 3 L nasal cannula is 97%. She continues to have a cough with less wheezing and more rales. I have decreased steroid dose. Chest x-ray done 2 days ago shows congestive heart failure with pulmonary vascular congestion and possible pleural effusion. I am going to continue IV furosemide,. 2 urinary tract infection with Proteus mirabilis. The organism is sensitive to Levaquin. She is on Levaquin which she will continue. 3. Atrial fibrillation chronic. She is on Xarelto for stroke prevention. Her heart rate is in a controlled rate . 4. Dementia 5. Generalized weakness. Result Diagram: 11/22/18 0530 11/22/18 0530 Results 24hrs Laboratory Tests Test 11/22/18 05:30 White Blood Count 8.1 # Red Blood Count 5.07 Hemoglobin 14.4 Hematocrit 45.7 Mean Corpuscular Volume 90.1 Mean Corpuscular Hemoglobin 28.4 L Mean Corpuscular Hemoglobin Concent 31.5 L Red Cell Distribution Width 14.8 H Platelet Count 209 Mean Platelet Volume 10.5 H Immature Granulocytes % 0.400 Neutrophils % 76.8 Lymphocytes % 13.2 L Monocytes % 8.8 Eosinophils % 0.7 Basophils % 0.1 Nucleated Red Blood Cells % 0.0 Immature Granulocytes # 0.030 Neutrophils # 6.2 Lymphocytes # 1.1 Monocytes # 0.7 Eosinophils # 0.1 Basophils # 0.0 Nucleated Red Blood Cells # 0.0 Sodium Level 137 Potassium Level 3.8 Chloride Level 103 Carbon Dioxide Level 29 Anion Gap 5 Blood Urea Nitrogen 23 H Creatinine 0.70 Est Glomerular Filtrat Rate mL/min Glucose Level 102 Calcium Level 9.8 Total Bilirubin 0.7 Direct Bilirubin 0.00 Indirect Bilirubin 0.7 Aspartate Amino Transf (AST/SGOT) 27 Alanine Aminotransferase (ALT/SGPT) 23 Alkaline Phosphatase 43 Total Protein 6.8 Albumin 3.7 Globulin 3.10 Albumin/Globulin Ratio 1.19 Subjective 24 Hr Interval Summary Free Text/Dictation Araceli continues to have a cough. Her lungs sound congested. She says that she wants to go home. Respiratory: cough, wheezing Cardiovascular: no complaints Gastrointestinal: no complaints Genitourinary: no complaints Musculoskeletal: no complaints Skin: no complaints Neurologic: no complaints Exam/Review of Systems Exam Vitals Vital Signs Date Temp Pulse Resp B/P (MAP) Pulse Ox O2 O2 Flow FiO2 Time Delivery Rate 11/22/18 76 20 91 Nasal 2.0 08:38 Cannula 11/22/18 98.1 150/77 07:44 (101) 11/21/18 28 03:50 Intake and Output 11/21/18 11/21/18 11/22/18 1515:00 23:00 07:00 IntakeIntake Total 350 ml 700 ml 400 ml BalanceBalance 350 ml 700 ml 400 ml Constitutional: alert, oriented, frail Psych: confusion Respiratory: congested cough, crackles/rales Cardiovascular: irregular rhythm Gastrointestinal: soft, non-tender Musculoskeletal: nl extremities to inspection Results Results 24hrs Laboratory Tests Test 11/22/18 05:30 White Blood Count 8.1 # Red Blood Count 5.07 Hemoglobin 14.4 Hematocrit 45.7 Mean Corpuscular Volume 90.1 Mean Corpuscular Hemoglobin 28.4 L Mean Corpuscular Hemoglobin Concent 31.5 L Red Cell Distribution Width 14.8 H Platelet Count 209 Mean Platelet Volume 10.5 H Immature Granulocytes % 0.400 Neutrophils % 76.8 Lymphocytes % 13.2 L Monocytes % 8.8 Eosinophils % 0.7 Basophils % 0.1 Nucleated Red Blood Cells % 0.0 Immature Granulocytes # 0.030 Neutrophils # 6.2 Lymphocytes # 1.1 Monocytes # 0.7 Eosinophils # 0.1 Basophils # 0.0 Nucleated Red Blood Cells # 0.0 Sodium Level 137 Potassium Level 3.8 Chloride Level 103 Carbon Dioxide Level 29 Anion Gap 5 Blood Urea Nitrogen 23 H Creatinine 0.70 Est Glomerular Filtrat Rate mL/min Glucose Level 102 Calcium Level 9.8 Total Bilirubin 0.7 Direct Bilirubin 0.00 Indirect Bilirubin 0.7 Aspartate Amino Transf (AST/SGOT) 27 Alanine Aminotransferase (ALT/SGPT) 23 Alkaline Phosphatase 43 Total Protein 6.8 Albumin 3.7 Globulin 3.10 Albumin/Globulin Ratio 1.19 Medications Medication Current Medications IV Flush (NS 3 ml) 3 ml PER PROTOCOL IV ; Start 11/16/18 at 14:30 Lorazepam (Ativan) 0.5 mg Q6H PRN IV .ANXIETY Last administered on 11/20/18 21:16; Admin Dose 0.5 MG; Start 11/16/18 at 14:30 Nitroglycerin (Nitroglycerin (Sl Tab) 0.4 Mg) 1 tab Q5M PRN SL .CHEST PAIN; Start 11/16/18 at 14:30 Acetaminophen (Tylenol Tab) 650 mg Q6H PRN PO .PAIN 1-3 OR TEMP; Start 11/16/18 at 14:30 Acetaminophen/ Hydrocodone Bitart ([place] (5/325)) 1 tab Q6H PRN PO .PAIN 4-6 Last administered on 11/16/18 15:59; Admin Dose 1 TAB; Start 11/16/18 at 14:30 Pantoprazole (Protonix Tab) 40 mg DAILY@06 PO Last administered on 11/22/18 06:34; Admin Dose 40 MG; Start 11/17/18 at 06:00 Albuterol/ Ipratropium (Duoneb) 3 ml Q6HWA RESP THERAPY HHN Last administered on 11/22/18 08:38; Admin Dose 3 ML; Start 11/16/18 at 20:00 Gabapentin (Neurontin) 400 mg BID PO Last administered on 11/22/18 08:23; Admin Dose 400 MG; Start 11/16/18 at 21:00 Sertraline HCl (Zoloft) 100 mg DAILY PO Last administered on 11/22/18 08:23; Admin Dose 100 MG; Start 11/17/18 at 09:00 Atorvastatin Calcium (Lipitor) 20 mg HS PO Last administered on 11/21/18 21:27; Admin Dose 20 MG; Start 11/16/18 at 21:00 Rivaroxaban (Xarelto) 15 mg DAILY PO Last administered on 11/22/18 08:23; Admin Dose 15 MG; Start 11/17/18 at 09:00 Levofloxacin (Levaquin) 500 mg DAILY@06 PO Last administered on 11/22/18 06:34; Admin Dose 500 MG; Start 11/19/18 at 06:00 Mupirocin (Bactroban) 1 applic BID TOP Last administered on 11/22/18 08:24; Admin Dose 1 APPLIC; Start 11/18/18 at 09:00 Furosemide (Lasix) 40 mg DAILY@0600 IV Last administered on 11/22/18 06:33; Admin Dose 40 MG; Start 11/20/18 at 08:30 Methylprednisolone Sodium Succinate (Solu-Medrol) 20 mg DAILY IV Last administered on 11/22/18 08:23; Admin Dose 20 MG; Start 11/21/18 at 09:00 Clonidine (Catapres) 0.1 mg TID PRN PO ELEVATED BLOOD PRESSURE Last administered on 11/21/18 08:56; Admin Dose 0.1 MG; Start 11/21/18 at 08:30 Losartan Potassium (Cozaar) 25 mg DAILY PO Last administered on 11/22/18 08:23; Admin Dose 25 MG; Start 11/21/18 at 09:00 BETTY MCKEON MD Nov 22, 2018 09:24
[2018-11-22] MEDS: ATORVASTATIN 20 MG TAB PO SCH (21:58)
[2018-11-23 03:35] VITALS: BP 168/77; PULSE 63; RESP 20
[2018-11-23] MEDS: LEVOFLOXACIN 500 MG TAB PO SCH (06:36)
[2018-11-23] MEDS: PANTOPRAZOLE (EC) 40 MG TAB PO SCH (06:36)
[2018-11-23] MEDS: FUROSEMIDE 40 MG INJ IV SCH (06:37)
[2018-11-23 07:02] VITALS: BP 152/86; PULSE 67; RESP 19
[2018-11-23] MEDS: ALBUTEROL/IPRATROPIUM (NEB) 3 ML AMP HHN SCH ×3 (07:30→19:40)
[2018-11-23] MEDS: GABAPENTIN 400 MG CAP PO SCH ×2 (08:45→21:21)
[2018-11-23] MEDS: RIVAROXABAN 15 MG TABLET PO SCH (08:45)
[2018-11-23] MEDS: SERTRALINE 100 MG TAB PO SCH (08:45)
[2018-11-23] MEDS: METHYLPREDNISOLONE 40 MG INJ IV SCH (08:45)
[2018-11-23] MEDS: MUPIROCIN 2% 22 GM OINT TOP SCH ×2 (08:47→21:22)
[2018-11-23] MEDS: LOSARTAN 25 MG TAB PO SCH (08:47)
[2018-11-23] MEDS ORDERED: POTASSIUM CHLORIDE (SR) 20 MEQ TAB PO STA (10:09)
--- NOTE | 2018-11-23 10:16 | PN ---
Date/Time of Note Date/Time of Note DATE: 11/23/18 TIME: 10:12 Assessment/Plan VTE Prophylaxis [place] [facility] [place]: 4 SCD applied [place] [facility] [place] No SCD contraindicated: other Pharmacological prophylaxis: rivaroxaban Pharm contraindication: other Lines/Catheters IV C[facility]ter Type (from [facility]): Saline Lock Urinary Cath still in place: No Assessment/Plan Hospital Course 1. Acute bronchitis / CHF , superimposed on chronic obstructive pulmonary disease. Her O2 saturation on 2 L nasal cannula is 95%. She continues to have a cough with less wheezing and more rales. I have decreased steroid dose. Chest x-ray done 2 days ago shows congestive heart failure with pulmonary vascular congestion and possible pleural effusion. I am going to continue IV furosemide,. I have ordered another chest x-ray for today. I have also called for a pulmonary consultation with Dr. Marley 2 urinary tract infection with Proteus mirabilis. The organism is sensitive to Levaquin. She has finished a course of Levaquin. 3. Atrial fibrillation chronic. She is on Xarelto for stroke prevention. Her heart rate is in a controlled rate . 4. Dementia 5. Generalized weakness. Result Diagram: 11/23/1827 11/23/18526 Results 24hrs Laboratory Tests Test 11/23/18 05:27 White Blood Count 8.0 Red Blood Count 5.32 Hemoglobin 15.2 Hematocrit 47.9 H Mean Corpuscular Volume 90.0 Mean Corpuscular Hemoglobin 28.6 L Mean Corpuscular Hemoglobin Concent 31.7 L Red Cell Distribution Width 14.8 H Platelet Count 230 Mean Platelet Volume 9.9 Immature Granulocytes % 0.400 Neutrophils % 73.3 Lymphocytes % 15.3 Monocytes % 9.3 Eosinophils % 1.6 Basophils % 0.1 Nucleated Red Blood Cells % 0.0 Immature Granulocytes # 0.030 Neutrophils # 5.8 Lymphocytes # 1.2 Monocytes # 0.7 Eosinophils # 0.1 Basophils # 0.0 Nucleated Red Blood Cells # 0.0 Sodium Level 139 Potassium Level 3.7 Chloride Level 103 Carbon Dioxide Level 30 Anion Gap 6 Blood Urea Nitrogen 27 H Creatinine 0.81 Est Glomerular Filtrat Rate mL/min Glucose Level 103 Calcium Level 10.1 Phosphorus Level 5.1 H Magnesium Level 1.9 Total Bilirubin 0.7 Direct Bilirubin 0.00 Indirect Bilirubin 0.7 Aspartate Amino Transf (AST/SGOT) 23 Alanine Aminotransferase (ALT/SGPT) 31 Alkaline Phosphatase 44 Total Protein 6.5 Albumin 3.7 Globulin 2.80 Albumin/Globulin Ratio 1.32 Subjective 24 Hr Interval Summary Free Text/Dictation Araceli is awake and alert. She continues to have a congested cough. She wants to go home however she continues to have pulmonary congestion. Constitutional: no complaints Respiratory: cough Gastrointestinal: no complaints Genitourinary: no complaints Musculoskeletal: no complaints Skin: no complaints Neurologic: no complaints Exam/Review of Systems Exam Vitals Vital Signs Date Temp Pulse Resp B/P (MAP) Pulse Ox O2 O2 Flow FiO2 Time Delivery Rate 11/23/18 2.0 07:30 11/23/18 68 19 95 Nasal 07:30 Cannula 11/23/18 98.1 152/86 07:02 (108) 11/22/18 28 20:25 Intake and Output 11/22/18 11/22/18 11/23/18 1515:00 23:00 07:00 IntakeIntake Total 240 ml 360 ml 300 ml BalanceBalance 240 ml 360 ml 300 ml Constitutional: alert, oriented, frail Psych: confusion Respiratory: congested cough, crackles/rales Cardiovascular: irregular rhythm Gastrointestinal: soft, non-tender Musculoskeletal: nl extremities to inspection Results Results 24hrs Laboratory Tests Test 11/23/18 05:27 White Blood Count 8.0 Red Blood Count 5.32 Hemoglobin 15.2 Hematocrit 47.9 H Mean Corpuscular Volume 90.0 Mean Corpuscular Hemoglobin 28.6 L Mean Corpuscular Hemoglobin Concent 31.7 L Red Cell Distribution Width 14.8 H Platelet Count 230 Mean Platelet Volume 9.9 Immature Granulocytes % 0.400 Neutrophils % 73.3 Lymphocytes % 15.3 Monocytes % 9.3 Eosinophils % 1.6 Basophils % 0.1 Nucleated Red Blood Cells % 0.0 Immature Granulocytes # 0.030 Neutrophils # 5.8 Lymphocytes # 1.2 Monocytes # 0.7 Eosinophils # 0.1 Basophils # 0.0 Nucleated Red Blood Cells # 0.0 Sodium Level 139 Potassium Level 3.7 Chloride Level 103 Carbon Dioxide Level 30 Anion Gap 6 Blood Urea Nitrogen 27 H Creatinine 0.81 Est Glomerular Filtrat Rate mL/min Glucose Level 103 Calcium Level 10.1 Phosphorus Level 5.1 H Magnesium Level 1.9 Total Bilirubin 0.7 Direct Bilirubin 0.00 Indirect Bilirubin 0.7 Aspartate Amino Transf (AST/SGOT) 23 Alanine Aminotransferase (ALT/SGPT) 31 Alkaline Phosphatase 44 Total Protein 6.5 Albumin 3.7 Globulin 2.80 Albumin/Globulin Ratio 1.32 Medications Medication Current Medications IV Flush (NS 3 ml) 3 ml PER PROTOCOL IV ; Start 11/16/18 at 14:30 Lorazepam (Ativan) 0.5 mg Q6H PRN IV .ANXIETY Last administered on 11/20/18 21:16; Admin Dose 0.5 MG; Start 11/16/18 at 14:30 Nitroglycerin (Nitroglycerin (Sl Tab) 0.4 Mg) 1 tab Q5M PRN SL .CHEST PAIN; Start 11/16/18 at 14:30 Acetaminophen (Tylenol Tab) 650 mg Q6H PRN PO .PAIN 1-3 OR TEMP; Start 11/16/18 at 14:30 Acetaminophen/ Hydrocodone Bitart ([place] (5/325)) 1 tab Q6H PRN PO .PAIN 4-6 Last administered on 11/16/18 15:59; Admin Dose 1 TAB; Start 11/16/18 at 14:30 Pantoprazole (Protonix Tab) 40 mg DAILY@06 PO Last administered on 11/23/18 06:36; Admin Dose 40 MG; Start 11/17/18 at 06:00 Albuterol/ Ipratropium (Duoneb) 3 ml Q6HWA RESP THERAPY HHN Last administered on 11/23/18 07:30; Admin Dose 3 ML; Start 11/16/18 at 20:00 Gabapentin (Neurontin) 400 mg BID PO Last administered on 11/23/18 08:45; Admin Dose 400 MG; Start 11/16/18 at 21:00 Sertraline HCl (Zoloft) 100 mg DAILY PO Last administered on 11/23/18 08:45; Admin Dose 100 MG; Start 11/17/18 at 09:00 Atorvastatin Calcium (Lipitor) 20 mg HS PO Last administered on 11/22/18 21:58; Admin Dose 20 MG; Start 11/16/18 at 21:00 Rivaroxaban (Xarelto) 15 mg DAILY PO Last administered on 11/23/18 08:45; Admin Dose 15 MG; Start 11/17/18 at 09:00 Levofloxacin (Levaquin) 500 mg DAILY@06 PO Last administered on 11/23/18 06:36; Admin Dose 500 MG; Start 11/19/18 at 06:00 Mupirocin (Bactroban) 1 applic BID TOP Last administered on 11/23/18 08:47; Admin Dose 1 APPLIC; Start 11/18/18 at 09:00 Furosemide (Lasix) 40 mg DAILY@0600 IV Last administered on 11/23/18 06:37; Admin Dose 40 MG; Start 11/20/18 at 08:30 Methylprednisolone Sodium Succinate (Solu-Medrol) 20 mg DAILY IV Last administered on 11/23/18 08:45; Admin Dose 20 MG; Start 11/21/18 at 09:00 Clonidine (Catapres) 0.1 mg TID PRN PO ELEVATED BLOOD PRESSURE Last administered on 11/21/18 08:56; Admin Dose 0.1 MG; Start 11/21/18 at 08:30 Losartan Potassium (Cozaar) 25 mg DAILY PO Last administered on 11/23/18 08:47; Admin Dose 25 MG; Start 11/21/18 at 09:00 Potassium Chloride (Klor-Con 20) 20 meq ONCE STAT PO ; Start 11/23/18 at 10:09; Stop 11/23/18 at 10:10; Status BETTY ABBOTT MD Nov 23, 2018 10:16
--- NOTE | 2018-11-23 10:34 | CONS ---
Assessment/Plan Assessment/Plan Hospital Course (Demo Recall) 1) COPD exacerbation and bronchitis on levaquin initial procalcitonin was neg, to repeat get nasal for viral PCR sputum cx was just collected get nasal for MRSA 11/18 - nasal has MRSA but pt has improved this likely represents colonization, recommend 10 days of bactroban to nares finish her levaquin (7 day course) will change levaquin to po form 11/19 - no new problems, on levaquin day 4/7 11/21 - day 6/7 of levaquin viral PCR of nares was neg 11/23 - d/c levaquin no further antibiotics at this time 2) probable UTI GNR noted in urine cx normal WBC, await final sensi's renal function is good 11/18 - pt has proteus in urine, sensi's are not available till tomorrow continue with levaquin 11/19 - levaquin is sensitive to her proteus, day 07/22 of treatment 11/21 - can d/c levaquin after tomorrow's dose 11/23 - d/c levaquin 3) 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 which may not be enough 4) CAD CP is related to her coughing and she has some slight pain with pressure on her sternal/rib junction 5) chronic a-fib on xarelto Consultation Date/Type/Reason Admit Date/Time Nov 16, 2018 at 15:30 Initial Consult Date 11/17/18 Type of Consult ID Requesting Provider: BETTY MCKEON MD Date/Time of Note DATE: 11/23/18 TIME: 10:32 24 HR Interval Summary Free Text/Dictation pt has cough with no change no CP, N, V, D Exam/Review of Systems Exam Vitals Vital Signs Date Temp Pulse Resp B/P (MAP) Pulse Ox O2 O2 Flow FiO2 Time Delivery Rate 11/23/18 2.0 07:30 11/23/18 68 19 95 Nasal 07:30 Cannula 11/23/18 98.1 152/86 07:02 (108) 11/22/18 28 20:25 Intake and Output 11/22/18 11/22/18 11/23/18 1515:00 23:00 07:00 IntakeIntake Total 240 ml 360 ml 300 ml BalanceBalance 240 ml 360 ml 300 ml Constitutional: alert Eyes: nl sclera ENMT: mucosa pink and moist Respiratory: other (clear anteriorly) Cardiovascular: regular rate and rhythm Gastrointestinal: soft, non-tender Results Result Diagram: 11/23/1852611/23/18526 Results 24hrs Laboratory Tests Test 11/23/18 05:27 White Blood Count 8.0 Red Blood Count 5.32 Hemoglobin 15.2 Hematocrit 47.9 H Mean Corpuscular Volume 90.0 Mean Corpuscular Hemoglobin 28.6 L Mean Corpuscular Hemoglobin Concent 31.7 L Red Cell Distribution Width 14.8 H Platelet Count 230 Mean Platelet Volume 9.9 Immature Granulocytes % 0.400 Neutrophils % 73.3 Lymphocytes % 15.3 Monocytes % 9.3 Eosinophils % 1.6 Basophils % 0.1 Nucleated Red Blood Cells % 0.0 Immature Granulocytes # 0.030 Neutrophils # 5.8 Lymphocytes # 1.2 Monocytes # 0.7 Eosinophils # 0.1 Basophils # 0.0 Nucleated Red Blood Cells # 0.0 Sodium Level 139 Potassium Level 3.7 Chloride Level 103 Carbon Dioxide Level 30 Anion Gap 6 Blood Urea Nitrogen 27 H Creatinine 0.81 Est Glomerular Filtrat Rate mL/min Glucose Level 103 Calcium Level 10.1 Phosphorus Level 5.1 H Magnesium Level 1.9 Total Bilirubin 0.7 Direct Bilirubin 0.00 Indirect Bilirubin 0.7 Aspartate Amino Transf (AST/SGOT) 23 Alanine Aminotransferase (ALT/SGPT) 31 Alkaline Phosphatase 44 Total Protein 6.5 Albumin 3.7 Globulin 2.80 Albumin/Globulin Ratio 1.32 Medications Medication Current Medications IV Flush (NS 3 ml) 3 ml PER PROTOCOL IV ; Start 11/16/18 at 14:30 Lorazepam (Ativan) 0.5 mg Q6H PRN IV .ANXIETY Last administered on 11/20/18at 21:16; Admin Dose 0.5 MG; Start 11/16/18 at 14:30 Nitroglycerin (Nitroglycerin (Sl Tab) 0.4 Mg) 1 tab Q5M PRN SL .CHEST PAIN; Start 11/16/18 at 14:30 Acetaminophen (Tylenol Tab) 650 mg Q6H PRN PO .PAIN 1-3 OR TEMP; Start 11/16/18 at 14:30 Acetaminophen/ Hydrocodone Bitart ([place] (5/325)) 1 tab Q6H PRN PO .PAIN 4-6 Last administered on 11/16/18 15:59; Admin Dose 1 TAB; Start 11/16/18 at 14:30 Pantoprazole (Protonix Tab) 40 mg DAILY@06 PO Last administered on 11/23/18 06:36; Admin Dose 40 MG; Start 11/17/18 at 06:00 Albuterol/ Ipratropium (Duoneb) 3 ml Q6HWA RESP THERAPY HHN Last administered on 11/23/18 07:30; Admin Dose 3 ML; Start 11/16/18 at 20:00 Gabapentin (Neurontin) 400 mg BID PO Last administered on 11/23/18 08:45; Admin Dose 400 MG; Start 11/16/18 at 21:00 Sertraline HCl (Zoloft) 100 mg DAILY PO Last administered on 11/23/18 08:45; Admin Dose 100 MG; Start 11/17/18 at 09:00 Atorvastatin Calcium (Lipitor) 20 mg HS PO Last administered on 11/22/18 21:58; Admin Dose 20 MG; Start 11/16/18 at 21:00 Rivaroxaban (Xarelto) 15 mg DAILY PO Last administered on 11/23/18 08:45; Admin Dose 15 MG; Start 11/17/18 at 09:00 Mupirocin (Bactroban) 1 applic BID TOP Last administered on 11/23/18 08:47; Admin Dose 1 APPLIC; Start 11/18/18 at 09:00 Furosemide (Lasix) 40 mg DAILY@0600 IV Last administered on 11/23/18 06:37; Admin Dose 40 MG; Start 11/20/18 at 08:30 Methylprednisolone Sodium Succinate (Solu-Medrol) 20 mg DAILY IV Last administered on 11/23/18 08:45; Admin Dose 20 MG; Start 11/21/18 at 09:00 Clonidine (Catapres) 0.1 mg TID PRN PO ELEVATED BLOOD PRESSURE Last administered on 11/21/18 08:56; Admin Dose 0.1 MG; Start 11/21/18 at 08:30 Losartan Potassium (Cozaar) 25 mg DAILY PO Last administered on 11/23/18 08:47; Admin Dose 25 MG; Start 11/21/18 at 09:00 LEXIE LEAVITT MD Nov 23, 2018 10:34
[2018-11-23] MEDS ORDERED: BISACODYL 10 MG SUPP PR PRN (11:00)
[2018-11-23] MEDS ORDERED: MAGNESIUM HYDROXIDE 30ML CUP PO PRN (11:00)
[2018-11-23 11:08] VITALS: BP 122/63; PULSE 74; RESP 19
[2018-11-23] MEDS: DOCUSATE SODIUM 100 MG CAP PO SCH ×2 (12:12→21:21)
--- NOTE | 2018-11-23 16:21 | CONS ---
DATE OF ADMISSION: 11/16/2018 DATE OF CONSULTATION: TYPE OF CONSULTATION: Pulmonary. REASON FOR CONSULTATION: Shortness of breath. Thank you, Dr. Mckeon, for this consultation. HISTORY OF PRESENT ILLNESS: This is an 88-year-old lady with multiple medical problems including rec ent UTI, dementia, chronic atrial fibrillation on anticoagulation and congestive cardiac failure orig inally presented for increasing shortness of breath, orthopnea, PND, found to be secondary to congest jennifer cardiac failure. The patient has advanced dementia, is unable to give me any history. She state s she wants to go home and has no shortness of breath at present. She has recently had echocardiogra m that shows mildly reduced ejection fraction with moderate pulmonary hypertension and moderate to se zoe tricuspid regurgitation. In addition, she has been reported to have increasing cough and conges tion with increased O2 requirements. PAST MEDICAL HISTORY: As above. MEDICATIONS: Per chart. ALLERGIES: 1. PENICILLIN. 2. HYDROMORPHONE. SOCIAL HISTORY: Currently nonsmoker, no alcohol, no history of drug use. FAMILY HISTORY: Noncontributory. SYSTEMS REVIEW: A 12-point review of systems was negative other than that mentioned above. PHYSICAL EXAMINATION: VITAL SIGNS: Temperature 98.2, pulse 74, blood pressure 122/63, O2 saturation 96% on 2 liters' nasal cannula. NECK: Supple. No JVD or lymphadenopathy. CARDIAC: S1, S2. No added sounds or murmurs. CHEST: Diminished air entry bilaterally. ABDOMEN: Soft, nontender. No guarding or rebound. EXTREMITIES: No cyanosis, clubbing or edema. NEUROLOGIC: Grossly intact. LABORATORY DATA: White count of 8, hemoglobin 15.2, platelets of 230. BUN 27, creatinine 0.81. INR 2.26. Urinalysis was positive for UTI. Viral workup per chart. Initial negative procalcitonin. IMPRESSION AND PLAN: 1. Likely chronic obstructive pulmonary disease exacerbation with acute bronchospasm. 2. Recent urinary tract infection with gram negative rods. 3. Advanced dementia. 4. History of coronary artery disease. 5. Chronic atrial fibrillation. RECOMMENDATIONS: Include: 1. Short steroid taper which has already been started. 2. Continue gentle diuretics. 3. Aspiration precautions. 4. Anticoagulation for atrial fibrillation. 5. DVT and GI prophylaxis. Dictated By: PATTI MELVIN/CORTES Conf#: [id number] [facility]#: [id number] CC: BETTY MCKEON MD;*[facility]*
[2018-11-23 20:00] VITALS: BP 132/79; PULSE 81; RESP 20
[2018-11-23] MEDS: ATORVASTATIN 20 MG TAB PO SCH (21:21)
[2018-11-24] VITALS: BP 161/75; PULSE 59; RESP 20
[2018-11-24 04:00] VITALS: BP 150/83; PULSE 65; RESP 21
[2018-11-24] MEDS: PANTOPRAZOLE (EC) 40 MG TAB PO SCH (06:45)
[2018-11-24] MEDS: FUROSEMIDE 40 MG INJ IV SCH (06:46)
[2018-11-24 08:16] VITALS: BP 148/87; PULSE 81
[2018-11-24] MEDS: ALBUTEROL/IPRATROPIUM (NEB) 3 ML AMP HHN SCH ×3 (08:42→19:39)
[2018-11-24] MEDS: METHYLPREDNISOLONE 40 MG INJ IV SCH (08:57)
[2018-11-24] MEDS: RIVAROXABAN 15 MG TABLET PO SCH (08:57)
[2018-11-24] MEDS: DOCUSATE SODIUM 100 MG CAP PO SCH ×2 (08:57→20:58)
[2018-11-24] MEDS: SERTRALINE 100 MG TAB PO SCH (08:57)
[2018-11-24] MEDS: GABAPENTIN 400 MG CAP PO SCH ×2 (08:57→20:58)
[2018-11-24] MEDS: MUPIROCIN 2% 22 GM OINT TOP SCH ×2 (08:58→20:59)
[2018-11-24] MEDS: LOSARTAN 25 MG TAB PO SCH (08:58)
--- NOTE | 2018-11-24 11:05 | PN ---
Date/Time of Note Date/Time of Note DATE: 11/24/18 TIME: 11:01 Assessment/Plan VTE Prophylaxis Risk score (from [facility] [place])>0 risk: 4 SCD applied (from Ns): Yes Pharmacological prophylaxis: rivaroxaban Lines/Catheters IV Catheter Type (from [facility] Saline Lock Urinary Cath still in place: No Assessment/Plan Hospital Course 1. Acute bronchitis / CHF - d/c IV steroids and start PO prednisone 40mg x 5 days - d/c IV lasix and start PO Lasix 40mg daily - check BNP tomorrow AM 2 urinary tract infection with Proteus mirabilis - s/p course of Levaquin. 3. Atrial fibrillation chronic. - cont xarelto 4. Dementia - will need home safety evaluation upon discharge 5. Generalized weakness. Result Diagram: 11/24/18 0507 11/24/18 0507 Results 24hrs Laboratory Tests Test 11/24/18 05:07 White Blood Count 8.5 Red Blood Count 5.51 H Hemoglobin 15.6 Hematocrit 50.0 H Mean Corpuscular Volume 90.7 Mean Corpuscular Hemoglobin 28.3 L Mean Corpuscular Hemoglobin Concent 31.2 L Red Cell Distribution Width 14.6 H Platelet Count 264 Mean Platelet Volume 10.1 Immature Granulocytes % 0.600 H Neutrophils % 74.4 Lymphocytes % 14.4 L Monocytes % 8.8 Eosinophils % 1.6 Basophils % 0.2 Nucleated Red Blood Cells % 0.0 Immature Granulocytes # 0.050 H Neutrophils # 6.3 Lymphocytes # 1.2 Monocytes # 0.8 Eosinophils # 0.1 Basophils # 0.0 Nucleated Red Blood Cells # 0.0 Sodium Level 141 Potassium Level 3.7 Chloride Level 103 Carbon Dioxide Level 30 Anion Gap 8 Blood Urea Nitrogen 28 H Creatinine 0.81 Est Glomerular Filtrat Rate mL/min Glucose Level 112 Calcium Level 9.7 Total Bilirubin 0.7 Direct Bilirubin 0.00 Indirect Bilirubin 0.7 Aspartate Amino Transf (AST/SGOT) 29 Alanine Aminotransferase (ALT/SGPT) 32 Alkaline Phosphatase 49 Total Protein 6.8 Albumin 3.8 Globulin 3.00 Albumin/Globulin Ratio 1.26 Subjective 24 Hr Interval Summary Free Text/Dictation Patient says she feels fine, wants to go home. not on NC currently, says she can ambulate to the bathroom by herself since no one is helping her. She lives alone, but states that her neighbor downstairs can come upstairs if needed. Exam/Review of Systems Exam Vitals Vital Signs Date Temp Pulse Resp B/P (MAP) Pulse Ox O2 O2 Flow FiO2 Time Delivery Rate 11/24/18 97.5 81 148/87 92 Nasal 08:16 (107) Cannula 11/24/18 21 04:00 11/24/18 2.0 00:10 11/23/18 21 19:42 Intake and Output 11/23/18 11/23/18 11/24/18 1515:00 23:00 07:00 IntakeIntake Total 240 ml 360 ml 60 ml BalanceBalance 240 ml 360 ml 60 ml Constitutional: alert, oriented, well developed Psych: no complaints Head: normocephalic, atraumatic Respiratory: other (bilateral coarse breath sounds with rales at the bases; no wheezing) Cardiovascular: regular rate and rhythm, nl pulses Gastrointestinal: soft, nl liver, spleen, non-tender, bowel sounds Results Results 24hrs Laboratory Tests Test 11/24/18 05:07 White Blood Count 8.5 Red Blood Count 5.51 H Hemoglobin 15.6 Hematocrit 50.0 H Mean Corpuscular Volume 90.7 Mean Corpuscular Hemoglobin 28.3 L Mean Corpuscular Hemoglobin Concent 31.2 L Red Cell Distribution Width 14.6 H Platelet Count 264 Mean Platelet Volume 10.1 Immature Granulocytes % 0.600 H Neutrophils % 74.4 Lymphocytes % 14.4 L Monocytes % 8.8 Eosinophils % 1.6 Basophils % 0.2 Nucleated Red Blood Cells % 0.0 Immature Granulocytes # 0.050 H Neutrophils # 6.3 Lymphocytes # 1.2 Monocytes # 0.8 Eosinophils # 0.1 Basophils # 0.0 Nucleated Red Blood Cells # 0.0 Sodium Level 141 Potassium Level 3.7 Chloride Level 103 Carbon Dioxide Level 30 Anion Gap 8 Blood Urea Nitrogen 28 H Creatinine 0.81 Est Glomerular Filtrat Rate mL/min Glucose Level 112 Calcium Level 9.7 Total Bilirubin 0.7 Direct Bilirubin 0.00 Indirect Bilirubin 0.7 Aspartate Amino Transf (AST/SGOT) 29 Alanine Aminotransferase (ALT/SGPT) 32 Alkaline Phosphatase 49 Total Protein 6.8 Albumin 3.8 Globulin 3.00 Albumin/Globulin Ratio 1.26 Medications Medication Current Medications IV Flush (NS 3 ml) 3 ml PER PROTOCOL IV ; Start 11/16/18 at 14:30 Lorazepam (Ativan) 0.5 mg Q6H PRN IV .ANXIETY Last administered on 11/20/18 21:16; Admin Dose 0.5 MG; Start 11/16/18 at 14:30 Nitroglycerin (Nitroglycerin (Sl Tab) 0.4 Mg) 1 tab Q5M PRN SL .CHEST PAIN; Start 11/16/18 at 14:30 Acetaminophen (Tylenol Tab) 650 mg Q6H PRN PO .PAIN 1-3 OR TEMP; Start 11/16/18 at 14:30 Acetaminophen/ Hydrocodone Bitart ([place] (5/325)) 1 tab Q6H PRN PO .PAIN 4-6 Last administered on 11/16/18 15:59; Admin Dose 1 TAB; Start 11/16/18 at 14:30 Pantoprazole (Protonix Tab) 40 mg DAILY@06 PO Last administered on 11/24/18 06:45; Admin Dose 40 MG; Start 11/17/18 at 06:00 Albuterol/ Ipratropium (Duoneb) 3 ml Q6HWA RESP THERAPY HHN Last administered on 11/24/18 08:42; Admin Dose 3 ML; Start 11/16/18 at 20:00 Gabapentin (Neurontin) 400 mg BID PO Last administered on 11/24/18 08:57; Admin Dose 400 MG; Start 11/16/18 at 21:00 Sertraline HCl (Zoloft) 100 mg DAILY PO Last administered on 11/24/18 08:57; Admin Dose 100 MG; Start 11/17/18 at 09:00 Atorvastatin Calcium (Lipitor) 20 mg HS PO Last administered on 11/23/18 21:21; Admin Dose 20 MG; Start 11/16/18 at 21:00 Rivaroxaban (Xarelto) 15 mg DAILY PO Last administered on 11/24/18 08:57; Admin Dose 15 MG; Start 11/17/18 at 09:00 Mupirocin (Bactroban) 1 applic BID TOP Last administered on 11/24/18 08:58; Admin Dose 1 APPLIC; Start 11/18/18 at 09:00 Furosemide (Lasix) 40 mg DAILY@0600 IV Last administered on 11/24/18 06:46; Admin Dose 40 MG; Start 11/20/18 at 08:30 Methylprednisolone Sodium Succinate (Solu-Medrol) 20 mg DAILY IV Last administered on 11/24/18at 08:57; Admin Dose 20 MG; Start 11/21/18 at 09:00 Clonidine (Catapres) 0.1 mg TID PRN PO ELEVATED BLOOD PRESSURE Last administered on 11/21/18at 08:56; Admin Dose 0.1 MG; Start 11/21/18 at 08:30 Losartan Potassium (Cozaar) 25 mg DAILY PO Last administered on 11/24/18at 08:58; Admin Dose 25 MG; Start 11/21/18 at 09:00 Docusate Sodium (Colace) 100 mg BID PO Last administered on 11/24/18at 08:57; Admin Dose 100 MG; Start 11/23/18 at 11:00 Magnesium Hydroxide (Milk Of Mag) 30 ml DAILY PRN PO CONSTIPATION; Start 11/23/18 at 11:00 Bisacodyl (Dulcolax Supp) 10 mg DAILY PRN [place] CONSTIPATION; Start 11/23/18 at 11:00 DAISY COVARRUBIAS MD Nov 24, 2018 11:05
--- NOTE | 2018-11-24 11:36 | CONS ---
Consult Date/Type/Reason Admit Date/Time Nov 16, 2018 at 15:30 Initial Consult Date 11/20/18 Type of Consult Pulmonary Requesting Provider: BETTY MCKEON MD Date/Time of Note DATE: 11/24/18 TIME: 11:35 Subjective No significant changes. Intermittently confused but no respiratory distress Objective Vital Signs Date Temp Pulse Resp B/P (MAP) Pulse Ox O2 O2 Flow FiO2 Time Delivery Rate 11/24/18 97.5 81 148/87 92 Nasal 08:16 (107) Cannula 11/24/18 04:00 11/24/18 2.0 00:10 11/23/18 19:42 Intake and Output 11/23/18 11/23/18 11/24/18 1515:00 23:00 07:00 IntakeIntake Total 240 ml 360 ml 60 ml BalanceBalance 240 ml 360 ml 60 ml Exam PHYSICAL EXAMINATION: VITAL SIGNS: NECK: Supple. No JVD or lymphadenopathy. CARDIAC: S1, S2. No added sounds or murmurs. CHEST: Diminished air entry bilaterally. ABDOMEN: Soft, nontender. No guarding or rebound. EXTREMITIES: No cyanosis, clubbing or edema. NEUROLOGIC: Grossly intact. Vent Setting Fraction of Inspired Oxygen pe: 21 Results/Medications Result Diagram: 11/24/18 0507 11/24/18 0507 Results 24 hrs Laboratory Tests Test 11/24/18 05:07 White Blood Count 8.5 Red Blood Count 5.51 H Hemoglobin 15.6 Hematocrit 50.0 H Mean Corpuscular Volume 90.7 Mean Corpuscular Hemoglobin 28.3 L Mean Corpuscular Hemoglobin Concent 31.2 L Red Cell Distribution Width 14.6 H Platelet Count 264 Mean Platelet Volume 10.1 Immature Granulocytes % 0.600 H Neutrophils % 74.4 Lymphocytes % 14.4 L Monocytes % 8.8 Eosinophils % 1.6 Basophils % 0.2 Nucleated Red Blood Cells % 0.0 Immature Granulocytes # 0.050 H Neutrophils # 6.3 Lymphocytes # 1.2 Monocytes # 0.8 Eosinophils # 0.1 Basophils # 0.0 Nucleated Red Blood Cells # 0.0 Sodium Level 141 Potassium Level 3.7 Chloride Level 103 Carbon Dioxide Level 30 Anion Gap 8 Blood Urea Nitrogen 28 H Creatinine 0.81 Est Glomerular Filtrat Rate mL/min Glucose Level 112 Calcium Level 9.7 Total Bilirubin 0.7 Direct Bilirubin 0.00 Indirect Bilirubin 0.7 Aspartate Amino Transf (AST/SGOT) 29 Alanine Aminotransferase (ALT/SGPT) 32 Alkaline Phosphatase 49 Total Protein 6.8 Albumin 3.8 Globulin 3.00 Albumin/Globulin Ratio 1.26 Medications Current Medications IV Flush (NS 3 ml) 3 ml PER PROTOCOL IV ; Start 11/16/18 at 14:30 Lorazepam (Ativan) 0.5 mg Q6H PRN IV .ANXIETY Last administered on 11/20/18 21:16; Admin Dose 0.5 MG; Start 11/16/18 at 14:30 Nitroglycerin (Nitroglycerin (Sl Tab) 0.4 Mg) 1 tab Q5M PRN SL .CHEST PAIN; Start 11/16/18 at 14:30 Acetaminophen (Tylenol Tab) 650 mg Q6H PRN PO .PAIN 1-3 OR TEMP; Start 11/16/18 at 14:30 Acetaminophen/ Hydrocodone Bitart ([place] (5/325)) 1 tab Q6H PRN PO .PAIN 4-6 Last administered on 11/16/18 15:59; Admin Dose 1 TAB; Start 11/16/18 at 14:30 Pantoprazole (Protonix Tab) 40 mg DAILY@06 PO Last administered on 11/24/18 06:45; Admin Dose 40 MG; Start 11/17/18 at 06:00 Albuterol/ Ipratropium (Duoneb) 3 ml Q6HWA RESP THERAPY HHN Last administered on 11/24/18 08:42; Admin Dose 3 ML; Start 11/16/18 at 20:00 Gabapentin (Neurontin) 400 mg BID PO Last administered on 11/24/18 08:57; A dmin Dose 400 MG; Start 11/16/18 at 21:00 Sertraline HCl (Zoloft) 100 mg DAILY PO Last administered on 11/24/18 08:57; Admin Dose 100 MG; Start 11/17/18 at 09:00 Atorvastatin Calcium (Lipitor) 20 mg HS PO Last administered on 11/23/18 21:21; Admin Dose 20 MG; Start 11/16/18 at 21:00 Rivaroxaban (Xarelto) 15 mg DAILY PO Last administered on 11/24/18 08:57; Admin Dose 15 MG; Start 11/17/18 at 09:00 Mupirocin (Bactroban) 1 applic BID TOP Last administered on 11/24/18 08:58; Admin Dose 1 APPLIC; Start 11/18/18 at 09:00 Clonidine (Catapres) 0.1 mg TID PRN PO ELEVATED BLOOD PRESSURE Last administ ered on 11/21/18 08:56; Admin Dose 0.1 MG; Start 11/21/18 at 08:30 Losartan Potassium (Cozaar) 25 mg DAILY PO Last administered on 11/24/18 08:58; Admin Dose 25 MG; Start 11/21/18 at 09:00 Docusate Sodium (Colace) 100 mg BID PO Last administered on 11/24/18 08:57; Admin Dose 100 MG; Start 11/23/18 at 11:00 Magnesium Hydroxide (Milk Of Mag) 30 ml DAILY PRN PO CONSTIPATION; Start 11/23/18 at 11:00 Bisacodyl (Dulcolax Supp) 10 mg DAILY PRN [place] CONSTIPATION; Start 11/23/18 at 11:00 Prednisone (Prednisone) 40 mg DAILY PO ; Start 11/25/18 at 09:00 Furosemide (Lasix) 40 mg DAILY PO ; Start 11/25/18 at 09:00 Assessment/Plan Hospital Course (Demo Recall) IMPRESSION AND PLAN: 1. Likely chronic obstructive pulmonary disease exacerbation with acute bronchospasm. 2. Recent urinary tract infection with gram negative rods. 3. Advanced dementia. 4. History of coronary artery disease. 5. Chronic atrial fibrillation. RECOMMENDATIONS: Include: 1. Short steroid taper which has already been started. 2. Continue gentle diuretics. 3. Aspiration precautions. 4. Anticoagulation for atrial fibrillation. 5. DVT and GI prophylaxis. PATTI NEUMANN MD, [facility] Nov 24, 2018 11:36
[2018-11-24 12:16] VITALS: BP 115/85; PULSE 88; RESP 18
[2018-11-24 16:08] VITALS: BP 115/75; PULSE 87; RESP 18
[2018-11-24 19:47] VITALS: BP 114/53; PULSE 90; RESP 18
[2018-11-24] MEDS: ATORVASTATIN 20 MG TAB PO SCH (20:58)
[2018-11-25] VITALS: BP 133/58; PULSE 74
[2018-11-25 04:19] VITALS: BP 143/70; PULSE 85; RESP 18
[2018-11-25] MEDS: PANTOPRAZOLE (EC) 40 MG TAB PO SCH (05:31)
[2018-11-25] MEDS: ALBUTEROL/IPRATROPIUM (NEB) 3 ML AMP HHN SCH ×3 (08:00→20:54)
[2018-11-25] MEDS: SERTRALINE 100 MG TAB PO SCH (08:34)
[2018-11-25] MEDS: GABAPENTIN 400 MG CAP PO SCH ×2 (08:34→21:46)
[2018-11-25] MEDS: DOCUSATE SODIUM 100 MG CAP PO SCH ×2 (08:34→21:46)
[2018-11-25] MEDS: RIVAROXABAN 15 MG TABLET PO SCH (08:35)
[2018-11-25] MEDS: FUROSEMIDE 40 MG TAB PO SCH (08:35)
[2018-11-25] MEDS: predniSONE 20 MG TAB PO SCH (08:35)
[2018-11-25] MEDS: LOSARTAN 25 MG TAB PO SCH (08:36)
[2018-11-25] MEDS: MUPIROCIN 2% 22 GM OINT TOP SCH ×2 (08:36→21:46)
--- NOTE | 2018-11-25 11:26 | PN ---
Date/Time of Note Date/Time of Note DATE: 11/25/18 TIME: 11:25 Assessment/Plan VTE Prophylaxis Risk score (from Ns)>0 risk: 5 SCD applied (from Ns): Yes Pharmacological prophylaxis: rivaroxaban Lines/Catheters IV [facility] Type (from [facility] Saline Lock Urinary Cath still in place: No Assessment/Plan Assessment/Plan 1. Acute bronchitis / CHF - started PO prednisone 40mg x 5 days on 11/24 - back on PO Lasix 40mg daily 11/24 - BNP down to 839 2 urinary tract infection with Proteus mirabilis - s/p course of Levaquin. 3. Atrial fibrillation chronic. - cont xarelto 4. Dementia - will need home safety evaluation upon discharge. 5. Generalized weakness. Result Diagram: 11/24/18 0507 11/24/18 0507 Results 24hrs Laboratory Tests Test 11/25/18 05:25 B-Type Natriuretic Peptide 839 H Subjective 24 Hr Interval Summary Free Text/Dictation feeling tired this AM, was sleeping a lot last night. Breathing stable, able to take a few steps in room today. on RA. hoping to go home soon. Exam/Review of Systems Exam Vitals Vital Signs Date Temp Pulse Resp B/P (MAP) Pulse Ox O2 O2 Flow FiO2 Time Delivery Rate 11/25/18 97.9 85 18 143/70 94 04:19 (94) 11/24/18 Nasal 2.0 19:55 Cannula 11/24/18 21 19:40 Intake and Output 11/24/18 11/24/18 11/25/18 1515:00 23:00 07:00 IntakeIntake Total 960 ml 720 ml 150 ml BalanceBalance 960 ml 720 ml 150 ml Constitutional: alert, oriented, well developed Respiratory: clear to auscultation, normal air movement, other (no wheezing; mild rales) Cardiovascular: regular rate and rhythm, nl pulses Gastrointestinal: soft, nl liver, spleen, non-tender Results Results 24hrs Laboratory Tests Test 11/25/18 05:25 B-Type Natriuretic Peptide 839 H Medications Medication Current Medications IV Flush (NS 3 ml) 3 ml PER PROTOCOL IV ; Start 11/16/18 at 14:30 Lorazepam (Ativan) 0.5 mg Q6H PRN IV .ANXIETY Last administered on 11/20/18at 21 :16; Admin Dose 0.5 MG; Start 11/16/18 at 14:30 Nitroglycerin (Nitroglycerin (Sl Tab) 0.4 Mg) 1 tab Q5M PRN SL .CHEST PAIN; Start 11/16/18 at 14:30 Acetaminophen (Tylenol Tab) 650 mg Q6H PRN PO .PAIN 1-3 OR TEMP; Start 11/16/18 at 14:30 Acetaminophen/ Hydrocodone Bitart ([place] (5/325)) 1 tab Q6H PRN PO .PAIN 4-6 Last administered on 11/16/18 15:59; Admin Dose 1 TAB; Start 11/16/18 at 14:30 Pantoprazole (Protonix Tab) 40 mg DAILY@06 PO Last administered on 11/25/18 05:31; Admin Dose 40 MG; Start 11/17/18 at 06:00 Albuterol/ Ipratropium (Duoneb) 3 ml Q6HWA RESP THERAPY HHN Last administered on 11/24/18 19:39; Admin Dose 3 ML; Start 11/16/18 at 20:00 Gabapentin (Neurontin) 400 mg BID PO Last administered on 11/25/18 08:34; Admin Dose 400 MG; Start 11/16/18 at 21:00 Sertraline HCl (Zoloft) 100 mg DAILY PO Last administered on 11/25/18 08:34; Admin Dose 100 MG; Start 11/17/18 at 09:00 Atorvastatin Calcium (Lipitor) 20 mg HS PO Last administered on 11/24/18 20:58; Admin Dose 20 MG; Start 11/16/18 at 21:00 Rivaroxaban (Xarelto) 15 mg DAILY PO Last administered on 11/25/18 08:35; Admi n Dose 15 MG; Start 11/17/18 at 09:00 Mupirocin (Bactroban) 1 applic BID TOP Last administered on 11/25/18 08:36; Admin Dose 1 APPLIC; Start 11/18/18 at 09:00 Clonidine (Catapres) 0.1 mg TID PRN PO ELEVATED BLOOD PRESSURE Last administered on 11/21/18 08:56; Admin Dose 0.1 MG; Start 11/21/18 at 08:30 Losartan Potassium (Cozaar) 25 mg DAILY PO Last administered on 11/25/18 08:36; Admin Dose 25 MG; Start 11/21/18 at 09:00 Docusate Sodium (Colace) 100 mg BID PO Last administered on 11/25/18 08:34; Admin Dose 100 MG; Start 11/23/18 at 11:00 Magnesium Hydroxide (Milk Of Mag) 30 ml DAILY PRN PO CONSTIPATION; Start 11/23/18 at 11:00 Bisacodyl (Dulcolax Supp) 10 mg DAILY PRN [place] CONSTIPATION; Start 11/23/18 at 11:00 Prednisone (Prednisone) 40 mg DAILY PO Last administered on 11/25/18 08:35; Admin Dose 40 MG; Start 11/25/18 at 09:00 Furosemide (Lasix) 40 mg DAILY PO Last administered on 11/25/18 08:35; Admin Dose 40 MG; Start 11/25/18 at 09:00 DAISY COVARRUBIAS MD Nov 25, 2018 11:26
--- NOTE | 2018-11-25 11:51 | CONS ---
Consult Date/Type/Reason Admit Date/Time Nov 16, 2018 at 15:30 Initial Consult Date 11/20/18 Type of Consult Pulmonary Requesting Provider: BETTY MCKEON MD Date/Time of Note DATE: 11/25/18 TIME: 11:51 Subjective Intermittent agitation but no respiratory distress. Objective Vital Signs Date Temp Pulse Resp B/P (MAP) Pulse Ox O2 O2 Flow FiO2 Time Delivery Rate 11/25/18 97.9 85 18 143/70 94 04:19 (94) 11/24/18 Nasal 2.0 19:55 Cannula 11/24/18 21 19:40 Intake and Output 11/24/18 11/24/18 11/25/18 1515:00 23:00 07:00 IntakeIntake Total 960 ml 720 ml 150 ml BalanceBalance 960 ml 720 ml 150 ml Exam PHYSICAL EXAMINATION: VITAL SIGNS: NECK: Supple. No JVD or lymphadenopathy. CARDIAC: S1, S2. No added sounds or murmurs. CHEST: Diminished air entry bilaterally. ABDOMEN: Soft, nontender. No guarding or rebound. EXTREMITIES: No cyanosis, clubbing or edema. NEUROLOGIC: Grossly intact. Vent Setting Fraction of Inspired Oxygen pe: 21 Results/Medications Result Diagram: 11/24/18 0507 11/24/18 0507 Results 24 hrs Laboratory Tests Test 11/25/18 05:25 B-Type Natriuretic Peptide 839 H Medications Current Medications IV Flush (NS 3 ml) 3 ml PER PROTOCOL IV ; Start 11/16/18 at 14:30 Lorazepam (Ativan) 0.5 mg Q6H PRN IV .ANXIETY Last administered on 11/20/18at 21:16; Admin Dose 0.5 MG; Start 11/16/18 at 14:30 Nitroglycerin (Nitroglycerin (Sl Tab) 0.4 Mg) 1 tab Q5M PRN SL .CHEST PAIN; St art 11/16/18 at 14:30 Acetaminophen (Tylenol Tab) 650 mg Q6H PRN PO .PAIN 1-3 OR TEMP; Start 11/16/18 at 14:30 Acetaminophen/ Hydrocodone Bitart ([place] (5/325)) 1 tab Q6H PRN PO .PAIN 4-6 Last administered on 11/16/18at 15:59; Admin Dose 1 TAB; Start 11/16/18 at 14:30 Pantoprazole (Protonix Tab) 40 mg DAILY@06 PO Last administered on 11/25/18 05:31; Admin Dose 40 MG; Start 11/17/18 at 06:00 Albuterol/ Ipratropium (Duoneb) 3 ml Q6HWA RESP THERAPY HHN Last administered on 11/24/18 19:39; Admin Dose 3 ML; Start 11/16/18 at 20:00 Gabapentin (Neurontin) 400 mg BID PO Last administered on 11/25/18 08:34; Admin Dose 400 MG; Start 11/16/18 at 21:00 Sertraline HCl (Zoloft) 100 mg DAILY PO Last administered on 11/25/18 08:34; Admin Dose 100 MG; Start 11/17/18 at 09:00 Atorvastatin Calcium (Lipitor) 20 mg HS PO Last administered on 11/24/18 20:58; Admin Dose 20 MG; Start 11/16/18 at 21:00 Rivaroxaban (Xarelto) 15 mg DAILY PO Last administered on 11/25/18 08:35; Admin Dose 15 MG; Start 11/17/18 at 09:00 Mupirocin (Bactroban) 1 applic BID TOP Last administered on 11/25/18 08:36; Admin Dose 1 APPLIC; Start 11/18/18 at 09:00 Clonidine (Catapres) 0.1 mg TID PRN PO ELEVATED BLOOD PRESSURE Last administered on 11/21/18 08:56; Admin Dose 0.1 MG; Start 11/21/18 at 08:30 Losartan Potassium (Cozaar) 25 mg DAILY PO Last administered on 11/25/18 08:36; Admin Dose 25 MG; Start 11/21/18 at 09:00 Docusate Sodium (Colace) 100 mg BID PO Last administered on 11/25/18 08:34; Admin Dose 100 MG; Start 11/23/18 at 11:00 Magnesium Hydroxide (Milk Of Mag) 30 ml DAILY PRN PO CONSTIPATION; Start 11/23/18 at 11:00 Bisacodyl (Dulcolax Supp) 10 mg DAILY PRN [place] CONSTIPATION; Start 11/23/18 at 11:00 Prednisone (Prednisone) 40 mg DAILY PO Last administered on 11/25/18 08:35; Admin Dose 40 MG; Start 11/25/18 at 09:00 Furosemide (Lasix) 40 mg DAILY PO Last administered on 11/25/18at 08:35; Admin Dose 40 MG; Start 11/25/18 at 09:00 Assessment/Plan Hospital Course (Demo Recall) IMPRESSION AND PLAN: 1. Likely chronic obstructive pulmonary disease exacerbation with acute bronchospasm. 2. Recent urinary tract infection with gram negative rods. 3. Advanced dementia. 4. History of coronary artery disease. 5. Chronic atrial fibrillation. RECOMMENDATIONS: 1. Short steroid taper which has already been started. 2. Continue gentle diuretics. 3. Aspiration precautions. 4. Anticoagulation for atrial fibrillation. 5. DVT and GI prophylaxis. DC planning okay from pulmonary standpoint PATTI NEUMANN MD, [facility] Nov 25, 2018 11:51
[2018-11-25 12:00] VITALS: BP 133/65; PULSE 81; RESP 18
[2018-11-25 16:37] VITALS: BP 145/81; PULSE 82; RESP 22
[2018-11-25 19:52] VITALS: BP 134/97; PULSE 90; RESP 20
[2018-11-25] MEDS: ATORVASTATIN 20 MG TAB PO SCH (21:46)
[2018-11-25] MEDS: LORAZEPAM 2 MG INJ IV PRN (22:26)
[2018-11-25 23:43] VITALS: BP 117/60; PULSE 87; RESP 18
[2018-11-26 04:00] VITALS: BP 142/89; PULSE 89; RESP 22
[2018-11-26] MEDS: PANTOPRAZOLE (EC) 40 MG TAB PO SCH (05:26)
[2018-11-26 07:53] VITALS: BP 158/87; PULSE 81; RESP 19
[2018-11-26] MEDS: RIVAROXABAN 15 MG TABLET PO SCH (09:00)
--- NOTE | 2018-11-26 09:39 | PN ---
Date/Time of Note Date/Time of Note DATE: 11/26/18 TIME: 09:35 Assessment/Plan VTE Prophylaxis Risk score (from [facility])>0 risk: 4 SCD applied (from [facility]): Yes Pharmacological prophylaxis: rivaroxaban Pharm contraindication: other Lines/Catheters IV Catheter Type (from [facility]): [place] Urinary Cath still in place: No Assessment/Plan Hospital Course 1. Acute bronchitis / CHF , superimposed on chronic obstructive pulmonary disease. Her O2 saturation on 2 L nasal cannula is 95%. She continues to have a cough , but she has less cough and less wheezes today. I am going to order labs and a chest x-ray this morning. If everything is okay then I will consider discharging her to home today to the care of her access rep at home. 2 urinary tract infection with Proteus mirabilis. The organism is sensitive to Levaquin. She has finished a course of Levaquin. 3. Atrial fibrillation chronic. She is on Xarelto for stroke prevention. Her heart rate is in a controlled rate . 4. Dementia 5. Generalized weakness. Result Diagram: 11/24/18 0507 11/24/18 0507 Subjective 24 Hr Interval Summary Free Text/Dictation Araceli is awake and alert this morning. She immediately says that she wants to go home. She is still coughing. Constitutional: improved Respiratory: cough Cardiovascular: no complaints Gastrointestinal: no complaints Genitourinary: no complaints Musculoskeletal: no complaints Neurologic: no complaints Exam/Review of Systems Exam Vitals Vital Signs Date Temp Pulse Resp B/P (MAP) Pulse Ox O2 O2 Flow FiO2 Time Delivery Rate 11/26/18 97.8 81 158/87 93 07:53 (110) 11/26/18 22 04:00 11/26/18 2.0 28 01:05 11/25/18 Nasal 20:59 Cannula Intake and Output 11/25/18 11/25/18 11/26/18 1515:00 23:00 07:00 IntakeIntake Total 730 ml 200 ml BalanceBalance 730 ml 200 ml Constitutional: alert, oriented Respiratory: congested cough, crackles/rales, diminished breath sounds Cardiovascular: irregular rhythm Musculoskeletal: nl extremities to inspection Medications Medication Current Medications IV Flush (NS 3 ml) 3 ml PER PROTOCOL IV ; Start 11/16/18 at 14:30 Lorazepam (Ativan) 0.5 mg Q6H PRN IV .ANXIETY Last administered on 11/25/18 22:26; Admin Dose 0.5 MG; Start 11/16/18 at 14:30 Nitroglycerin (Nitroglycerin (Sl Tab) 0.4 Mg) 1 tab Q5M PRN SL .CHEST PAIN; Start 11/16/18 at 14:30 Acetaminophen (Tylenol Tab) 650 mg Q6H PRN PO .PAIN 1-3 OR TEMP; Start 11/16/18 at 14:30 Acetaminophen/ Hydrocodone Bitart ([place] (5/325)) 1 tab Q6H PRN PO .PAIN 4-6 Last administered on 11/16/18 15:59; Admin Dose 1 TAB; Start 11/16/18 at 14:30 Pantoprazole (Protonix Tab) 40 mg DAILY@06 PO Last administered on 11/26/18 05:26; Admin Dose 40 MG; Start 11/17/18 at 06:00 Albuterol/ Ipratropium (Duoneb) 3 ml Q6HWA RESP THERAPY HHN Last administered on 11/25/18 20:54; Admin Dose 3 ML; Start 11/16/18 at 20:00 Gabapentin (Neurontin) 400 mg BID PO Last administered on 11/25/18 21:46; Admin Dose 400 MG; Start 11/16/18 at 21:00 Sertraline HCl (Zoloft) 100 mg DAILY PO Last administered on 11/25/18 08:34; Admin Dose 100 MG; Start 11/17/18 at 09:00 Atorvastatin Calcium (Lipitor) 20 mg HS PO Last administered on 11/25/18 21:46; Admin Dose 20 MG; Start 11/16/18 at 21:00 Rivaroxaban (Xarelto) 15 mg DAILY PO Last administered on 11/25/18 08:35; Admin Dose 15 MG; Start 11/17/18 at 09:00 Mupirocin (Bactroban) 1 applic BID TOP Last administered on 11/25/18 21:46; Admin Dose 1 APPLIC; Start 11/18/18 at 09:00 Clonidine (Catapres) 0.1 mg TID PRN PO ELEVATED BLOOD PRESSURE Last administered on 11/21/18 08:56; Admin Dose 0.1 MG; Start 11/21/18 at 08:30 Losartan Potassium (Cozaar) 25 mg DAILY PO Last administered on 11/25/18at 08:36; Admin Dose 25 MG; Start 11/21/18 at 09:00 Docusate Sodium (Colace) 100 mg BID PO Last administered on 11/25/18at 21:46; Admin Dose 100 MG; Start 11/23/18 at 11:00 Magnesium Hydroxide (Milk Of Mag) 30 ml DAILY PRN PO CONSTIPATION; Start 11/23/18 at 11:00 Bisacodyl (Dulcolax Supp) 10 mg DAILY PRN [place] CONSTIPATION; Start 11/23/18 at 11:00 Prednisone (Prednisone) 40 mg DAILY PO Last administered on 11/25/18at 08:35; Admin Dose 40 MG; Start 11/25/18 at 09:00 Furosemide (Lasix) 40 mg DAILY PO Last administered on 11/25/18at 08:35; Admin Dose 40 MG; Start 11/25/18 at 09:00 BETTY MCKEON MD Nov 26, 2018 09:39
[2018-11-26] MEDS: ALBUTEROL/IPRATROPIUM (NEB) 3 ML AMP HHN SCH ×3 (10:50→20:42)
[2018-11-26] MEDS: DOCUSATE SODIUM 100 MG CAP PO SCH ×2 (11:14→21:38)
[2018-11-26] MEDS: LOSARTAN 25 MG TAB PO SCH (11:15)
[2018-11-26] MEDS: FUROSEMIDE 40 MG TAB PO SCH (11:15)
[2018-11-26] MEDS: GABAPENTIN 400 MG CAP PO SCH ×2 (11:15→21:39)
[2018-11-26] MEDS: predniSONE 20 MG TAB PO SCH (11:15)
[2018-11-26] MEDS: MUPIROCIN 2% 22 GM OINT TOP SCH ×2 (11:16→21:42)
[2018-11-26] MEDS: SERTRALINE 100 MG TAB PO SCH (11:16)
[2018-11-26 11:24] VITALS: BP 147/76; PULSE 84; RESP 18
--- NOTE | 2018-11-26 12:12 | CONS ---
Consult Date/Type/Reason Admit Date/Time Nov 16, 2018 at 15:30 Initial Consult Date 11/20/18 Type of Consult Pulmonary Requesting Provider: BETTY MCKEON MD Date/Time of Note DATE: 11/26/18 TIME: 12:11 Subjective Patient slowly improving less shortness of breath less cough. Objective Vital Signs Date Temp Pulse Resp B/P (MAP) Pulse Ox O2 O2 Flow FiO2 Time Delivery Rate 11/26/18 98.3 84 147/76 95 11:24 (99) 11/26/18 22 04:00 11/26/18 2.0 28 01:05 11/25/18 Nasal 20:59 Cannula Intake and Output 11/25/18 11/25/18 11/26/18 1515:00 23:00 07:00 IntakeIntake Total 730 ml 200 ml BalanceBalance 730 ml 200 ml Exam PHYSICAL EXAMINATION: GENERAL: Chronically ill-appearing lady, no respiratory distress no accessory muscle use. Confused at baseline. VITAL SIGNS: NECK: Supple. No JVD or lymphadenopathy. CARDIAC: S1, S2. No added sounds or murmurs. CHEST: Diminished air entry bilaterally. ABDOMEN: Soft, nontender. No guarding or rebound. EXTREMITIES: No cyanosis, clubbing or edema. NEUROLOGIC: Generalized weakness. Vent Setting Fraction of Inspired Oxygen pe: 28 Results/Medications Result Diagram: 11/26/18 1017 11/26/18 1017 Results 24 hrs Laboratory Tests Test 11/26/18 10:17 White Blood Count 9.1 Red Blood Count 5.83 H Hemoglobin 16.6 H Hematocrit 52.7 H Mean Corpuscular Volume 90.4 Mean Corpuscular Hemoglobin 28.5 L Mean Corpuscular Hemoglobin Concent 31.5 L Red Cell Distribution Width 14.8 H Platelet Count 316 Mean Platelet Volume 9.9 Immature Granulocytes % 0.600 H Neutrophils % 70.4 Lymphocytes % 17.7 Monocytes % 8.6 Eosinophils % 2.4 Basophils % 0.3 Nucleated Red Blood Cells % 0.0 Immature Granulocytes # 0.050 H Neutrophils # 6.4 Lymphocytes # 1.6 Monocytes # 0.8 Eosinophils # 0.2 Basophils # 0.0 Nucleated Red Blood Cells # 0.0 Sodium Level 139 Potassium Level 3.5 Chloride Level 105 Carbon Dioxide Level 27 Anion Gap 7 Blood Urea Nitrogen 28 H Creatinine 0.82 Est Glomerular Filtrat Rate mL/min Glucose Level 104 Calcium Level 10.3 H Total Bilirubin 0.8 Direct Bilirubin 0.00 Indirect Bilirubin 0.8 Aspartate Amino Transf (AST/SGOT) 27 Alanine Aminotransferase (ALT/SGPT) 37 Alkaline Phosphatase 46 Total Protein 7.1 Albumin 3.9 Globulin 3.20 Albumin/Globulin Ratio 1.21 Medications Current Medications IV Flush (NS 3 ml) 3 ml PER PROTOCOL IV ; Start 11/16/18 at 14:30 Lorazepam (Ativan) 0.5 mg Q6H PRN IV .ANXIETY Last administered on 11/25/18 22:26; Admin Dose 0.5 MG; Start 11/16/18 at 14:30 Nitroglycerin (Nitroglycerin (Sl Tab) 0.4 Mg) 1 tab Q5M PRN SL .CHEST PAIN; Start 11/16/18 at 14:30 Acetaminophen (Tylenol Tab) 650 mg Q6H PRN PO .PAIN 1-3 OR TEMP; Start 11/16/18 at 14:30 Acetaminophen/ Hydrocodone Bitart ([place] (5/325)) 1 tab Q6H PRN PO .PAIN 4-6 Last administered on 11/16/18 15:59; Admin Dose 1 TAB; Start 11/16/18 at 14:30 Pantoprazole (Protonix Tab) 40 mg DAILY@06 PO Last administered on 11/26/18 05:26; Admin Dose 40 MG; Start 11/17/18 at 06:00 Albuterol/ Ipratropium (Duoneb) 3 ml Q6HWA RESP THERAPY HHN Last administered on 11/26/18 10:50; Admin Dose 3 ML; Start 11/16/18 at 20:00 Gabapentin (Neurontin) 400 mg BID PO Last administered on 11/26/18 11:15; Ad min Dose 400 MG; Start 11/16/18 at 21:00 Sertraline HCl (Zoloft) 100 mg DAILY PO Last administered on 11/26/18 11:16; Admin Dose 100 MG; Start 11/17/18 at 09:00 Atorvastatin Calcium (Lipitor) 20 mg HS PO Last administered on 11/25/18 21:46; Admin Dose 20 MG; Start 11/16/18 at 21:00 Rivaroxaban (Xarelto) 15 mg DAILY PO Last administered on 11/25/18 08:35; Admin Dose 15 MG; Start 11/17/18 at 09:00 Mupirocin (Bactroban) 1 applic BID TOP Last administered on 11/26/18 11:16; Admin Dose 1 APPLIC; Start 11/18/18 at 09:00 Clonidine (Catapres) 0.1 mg TID PRN PO ELEVATED BLOOD PRESSURE Last administ ered on 11/21/18 08:56; Admin Dose 0.1 MG; Start 11/21/18 at 08:30 Losartan Potassium (Cozaar) 25 mg DAILY PO Last administered on 11/26/18 11:15; Admin Dose 25 MG; Start 11/21/18 at 09:00 Docusate Sodium (Colace) 100 mg BID PO Last administered on 11/26/18 11:14; Admin Dose 100 MG; Start 11/23/18 at 11:00 Magnesium Hydroxide (Milk Of Mag) 30 ml DAILY PRN PO CONSTIPATION; Start 11/23/18 at 11:00 Bisacodyl (Dulcolax Supp) 10 mg DAILY PRN [place] CONSTIPATION; Start 11/23/18 at 11:00 Prednisone (Prednisone) 40 mg DAILY PO Last administered on 11/26/18 11:15; Admin Dose 40 MG; Start 11/25/18 at 09:00 Furosemide (Lasix) 40 mg DAILY PO Last administered on 11/26/18 11:15; Admin Dose 40 MG; Start 11/25/18 at 09:00 Assessment/Plan Hospital Course (Demo Recall) IMPRESSION AND PLAN: 1. Likely chronic obstructive pulmonary disease exacerbation with acute broncho spasm. Possible mild CHF component. 2. Recent urinary tract infection with Proteus mirabilis 3. Advanced dementia. 4. History of coronary artery disease. 5. Chronic atrial fibrillation. RECOMMENDATIONS: 1. Short steroid taper which has already been started. 2. Continue gentle diuretics. 3. Aspiration precautions. 4. Anticoagulation for atrial fibrillation. 5. DVT and GI prophylaxis. DC planning okay from pulmonary standpoint PATTI NEUMANN MD, [facility] Nov 26, 2018 12:12
[2018-11-26 15:59] VITALS: BP 102/70; PULSE 80; RESP 20
[2018-11-26 20:02] VITALS: BP 112/76; PULSE 60; RESP 18
[2018-11-26] MEDS: ATORVASTATIN 20 MG TAB PO SCH (21:39)
[2018-11-27 04:08] VITALS: BP 142/92; PULSE 73; RESP 18
[2018-11-27] MEDS: PANTOPRAZOLE (EC) 40 MG TAB PO SCH (05:55)
[2018-11-27] MEDS ORDERED: CIPROFLOXACIN 250 MG TAB PO SCH (06:00)
--- NOTE | 2018-11-27 07:04 | CONS ---
DATE OF ADMISSION: 11/16/2018 DATE OF CONSULTATION: Consultation for ____. Thank you, ____ for this interesting consultation. HISTORY OF PRESENT ILLNESS: The patient is an 88-year-old female who had been admitted for pneumonia, bronchitis superimposed with chronic obstructive pulmonary disease. She was called for a possible vaginal bleeding at the time that the lady was going to go home recovered from her admission problems which were multiple, including the chronic atrial fibrillation and dementia, arteriosclerosis, CHF, hyperlipidemia, UTI. The patient as you know is a 5, para 2 with 3 abortions. Patient with a history of a hysterectomy, bilateral salpingo-oophorectomy for benign disease due to bleeding. The patient was operated on early in her life due to benign vaginal bleeding intractable. 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 Today, she had vaginal bleeding and the urinary culture showed to produce ____100,000/100,000 colonies sensitive to ciprofloxacin. The patient was having no complaints. She has no perception of her bladder issues. ALLERGIES: PELVIC: Revealed that the vagina was blunt, with no uterus and there were no lesions and external genitalia or in the vaginal area. The bladder was tender. The adnexa were nonpalpable. The uterus was absent. Rectal examination with a tender bladder on palpation. The vaginal bleeding, most likely is related to a urinary tract infection which was also viewed on the urinalysis that revealed that she had 22 RBCs today on examination. The patient also had WBCs that were very high on admission date. The patient should be reevaluated with a culture after antibiotic treatment and she is possibly okay to go home. Of note, on examination of the patient, there is a small scab on her nose on the left side that possibly needs a biopsy. Otherwise, she is cleared in the OBGYN area to go home on antibiotics for UTI. Dictated By: ROSEANNA GUERRERO/CORTES Conf#: [id number] DID#: [id number]
[2018-11-27 07:47] VITALS: BP 137/90; PULSE 90; RESP 18
--- NOTE | 2018-11-27 08:10 | PN ---
Date/Time of Note Date/Time of Note DATE: 11/27/18 TIME: 07:56 Assessment/Plan VTE Prophylaxis Risk score (from [facility] [place])>0 risk: 6 SCD applied (from [facility] [place]): No SCD contraindicated: low risk/ambulating Pharmacological prophylaxis: rivaroxaban Pharm contraindication: bleeding Lines/Catheters IV Catheter Type (from [facility]): Peripheral IV Urinary Cath still in place: No Assessment/Plan Hospital Course 1. Acute bronchitis / CHF , superimposed on chronic obstructive pulmonary disease. Her O2 saturation on 2 L nasal cannula is 95%. She continues to have a cough , but she has less cough and less wheezes today. She is less congested . she wants to go home . i will try to find her director of user experience to help arrange for her to go home . 2 urinary tract infection with Proteus mirabilis. The organism was sensitive to Levaquin. She has finished a course of Levaquin. Yesterday she had RBCs and 1 WBC. I suspect this is a residual from her previous infection. I will await the urinary culture before starting her on another antibiotic. In view of the bleeding I have held the Xarelto for now. I will resume the Xarelto once she has completely stopped bleeding. Pelvic bleeding which was determined to be coming from her urinary tract. She had a urinalysis done which did show 3. Atrial fibrillation chronic. She was on Xarelto for stroke prevention ; however , I did stop it for now because of the urinary bleeding . I will resume Xarelto once I am sure she is not bleeding... Her heart rate is in a controlled rate . 4. Dementia 5. Generalized weakness. Result Diagram: 11/26/18 1017 11/26/18 1017 Results 24hrs Laboratory Tests Test 11/26/18 10:17 11/26/18 16:30 White Blood Count 9.1 Red Blood Count 5.83 H Hemoglobin 16.6 H Hematocrit 52.7 H Mean Corpuscular Volume 90.4 Mean Corpuscular Hemoglobin 28.5 L Mean Corpuscular Hemoglobin Concent 31.5 L Red Cell Distribution Width 14.8 H Platelet Count 316 Mean Platelet Volume 9.9 Immature Granulocytes % 0.600 H Neutrophils % 70.4 Lymphocytes % 17.7 Monocytes % 8.6 Eosinophils % 2.4 Basophils % 0.3 Nucleated Red Blood Cells % 0.0 Immature Granulocytes # 0.050 H Neutrophils # 6.4 Lymphocytes # 1.6 Monocytes # 0.8 Eosinophils # 0.2 Basophils # 0.0 Nucleated Red Blood Cells # 0.0 Sodium Level 139 Potassium Level 3.5 Chloride Level 105 Carbon Dioxide Level 27 Anion Gap 7 Blood Urea Nitrogen 28 H Creatinine 0.82 Est Glomerular Filtrat Rate mL/min Glucose Level 104 Calcium Level 10.3 H Total Bilirubin 0.8 Direct Bilirubin 0.00 Indirect Bilirubin 0.8 Aspartate Amino Transf (AST/SGOT) 27 Alanine Aminotransferase (ALT/SGPT) 37 Alkaline Phosphatase 46 Total Protein 7.1 Albumin 3.9 Globulin 3.20 Albumin/Globulin Ratio 1.21 Urine Color STRAW Urine Clarity CLEAR Urine pH 7.0 Urine Specific [place] 1.006 Urine Ketones NEGATIVE Urine Nitrite NEGATIVE Urine Bilirubin NEGATIVE Urine Urobilinogen NEGATIVE Urine Leukocyte Esterase NEGATIVE Urine Microscopic RBC 22 H Urine Microscopic WBC 1 Urine Hemoglobin 1+ H Urine Glucose NEGATIVE Urine Total Protein NEGATIVE Subjective 24 Hr Interval Summary Free Text/Dictation Araceli is awake and alert this morning. She still has a cough. She is not short of breath. She has no active bleeding today. She did have some vaginal and/or urinary bleeding yesterday. She was seen and examined by Dr. Pastor a stem processing machine operator. She felt that the bleeding was coming from her urine. The patient does not have a uterus as she has had a hysterectomy. Constitutional: improved Respiratory: cough Cardiovascular: no complaints Gastrointestinal: no complaints Genitourinary: no complaints Musculoskeletal: no complaints Skin: no complaints Exam/Review of Systems Exam Vitals Vital Signs Date Temp Pulse Resp B/P (MAP) Pulse Ox O2 O2 Flow FiO2 Time Delivery Rate 11/27/18 98.2 90 18 137/90 98 07:47 (106) 11/27/18 2.0 05:14 11/26/18 Nasal 23:01 Cannula 11/26/18 28 01:05 Intake and Output 11/26/18 11/26/18 11/27/18 1515:00 23:00 07:00 IntakeIntake Total 800 ml 400 ml OutputOutput Total 200 ml 250 ml BalanceBalance 600 ml 150 ml Constitutional: alert, oriented, frail Psych: confusion Respiratory: congested cough, crackles/rales Cardiovascular: irregular rhythm Gastrointestinal: soft, non-tender Musculoskeletal: nl extremities to inspection Results Results 24hrs Laboratory Tests Test 11/26/18 10:17 11/26/18 16:30 White Blood Count 9.1 Red Blood Count 5.83 H Hemoglobin 16.6 H Hematocrit 52.7 H Mean Corpuscular Volume 90.4 Mean Corpuscular Hemoglobin 28.5 L Mean Corpuscular Hemoglobin Concent 31.5 L Red Cell Distribution Width 14.8 H Platelet Count 316 Mean Platelet Volume 9.9 Immature Granulocytes % 0.600 H Neutrophils % 70.4 Lymphocytes % 17.7 Monocytes % 8.6 Eosinophils % 2.4 Basophils % 0.3 Nucleated Red Blood Cells % 0.0 Immature Granulocytes # 0.050 H Neutrophils # 6.4 Lymphocytes # 1.6 Monocytes # 0.8 Eosinophils # 0.2 Basophils # 0.0 Nucleated Red Blood Cells # 0.0 Sodium Level 139 Potassium Level 3.5 Chloride Level 105 Carbon Dioxide Level 27 Anion Gap 7 Blood Urea Nitrogen 28 H Creatinine 0.82 Est Glomerular Filtrat Rate mL/min Glucose Level 104 Calcium Level 10.3 H Total Bilirubin 0.8 Direct Bilirubin 0.00 Indirect Bilirubin 0.8 Aspartate Amino Transf (AST/SGOT) 27 Alanine Aminotransferase (ALT/SGPT) 37 Alkaline Phosphatase 46 Total Protein 7.1 Albumin 3.9 Globulin 3.20 Albumin/Globulin Ratio 1.21 Urine Color STRAW Urine Clarity CLEAR Urine pH 7.0 Urine Specific [place] 1.006 Urine Ketones NEGATIVE Urine Nitrite NEGATIVE Urine Bilirubin NEGATIVE Urine Urobilinogen NEGATIVE Urine Leukocyte Esterase NEGATIVE Urine Microscopic RBC 22 H Urine Microscopic WBC 1 Urine Hemoglobin 1+ H Urine Glucose NEGATIVE Urine Total Protein NEGATIVE Medications Medication Current Medications IV Flush (NS 3 ml) 3 ml PER PROTOCOL IV ; Start 11/16/18 at 14:30 Lorazepam (Ativan) 0.5 mg Q6H PRN IV .ANXIETY Last administered on 11/25/18at 22:26; Admin Dose 0.5 MG; Start 11/16/18 at 14:30 Nitroglycerin (Nitroglycerin (Sl Tab) 0.4 Mg) 1 tab Q5M PRN SL .CHEST PAIN; Start 11/16/18 at 14:30 Acetaminophen (Tylenol Tab) 650 mg Q6H PRN PO .PAIN 1-3 OR TEMP; Start 11/16/18 at 14:30 Acetaminophen/ Hydrocodone Bitart ([place] (5/325)) 1 tab Q6H PRN PO .PAIN 4-6 Last administered on 11/16/18 15:59; Admin Dose 1 TAB; Start 11/16/18 at 14:30 Pantoprazole (Protonix Tab) 40 mg DAILY@06 PO Last administered on 11/27/18 05:55; Admin Dose 40 MG; Start 11/17/18 at 06:00 Albuterol/ Ipratropium (Duoneb) 3 ml Q6HWA RESP THERAPY HHN Last administered on 11/26/18 20:42; Admin Dose 3 ML; Start 11/16/18 at 20:00 Gabapentin (Neurontin) 400 mg BID PO Last administered on 11/26/18 21:39; Admin Dose 400 MG; Start 11/16/18 at 21:00 Sertraline HCl (Zoloft) 100 mg DAILY PO Last administered on 11/26/18 11:16; Admin Dose 100 MG; Start 11/17/18 at 09:00 Atorvastatin Calcium (Lipitor) 20 mg HS PO Last administered on 11/26/18 21:39; Admin Dose 20 MG; Start 11/16/18 at 21:00 Mupirocin (Bactroban) 1 applic BID TOP Last administered on 11/26/18 21:42; Admin Dose 1 APPLIC; Start 11/18/18 at 09:00 Clonidine (Catapres) 0.1 mg TID PRN PO ELEVATED BLOOD PRESSURE Last administered on 11/21/18 08:56; Admin Dose 0.1 MG; Start 11/21/18 at 08:30 Losartan Potassium (Cozaar) 25 mg DAILY PO Last administered on 11/26/18 11:15; Admin Dose 25 MG; Start 11/21/18 at 09:00 Docusate Sodium (Colace) 100 mg BID PO Last administered on 11/26/18 21:38; Admin Dose 100 MG; Start 11/23/18 at 11:00 Magnesium Hydroxide (Milk Of Mag) 30 ml DAILY PRN PO CONSTIPATION; Start 11/23/18 at 11:00 Bisacodyl (Dulcolax Supp) 10 mg DAILY PRN [place] CONSTIPATION; Start 11/23/18 at 11:00 Prednisone (Prednisone) 40 mg DAILY PO Last administered on 11/26/18 11:15; Admin Dose 40 MG; Start 11/25/18 at 09:00 Furosemide (Lasix) 40 mg DAILY PO Last administered on 11/26/18at 11:15; Admin Dose 40 MG; Start 11/25/18 at 09:00 Ciprofloxacin (Cipro) 250 mg BID@,18 PO Last administered on 11/27/18at 05:54; Admin Dose 250 MG; Start 11/27/18 at 06:00 BETTY MCKEON MD Nov 27, 2018 08:10
[2018-11-27] MEDS: ALBUTEROL/IPRATROPIUM (NEB) 3 ML AMP HHN SCH (08:57)
[2018-11-27] MEDS: LOSARTAN 25 MG TAB PO SCH (09:37)
[2018-11-27] MEDS: DOCUSATE SODIUM 100 MG CAP PO SCH (09:37)
[2018-11-27] MEDS: MUPIROCIN 2% 22 GM OINT TOP SCH (09:38)
[2018-11-27] MEDS: SERTRALINE 100 MG TAB PO SCH (09:38)
[2018-11-27] MEDS: predniSONE 20 MG TAB PO SCH (09:38)
[2018-11-27] MEDS: FUROSEMIDE 40 MG TAB PO SCH (09:38)
[2018-11-27] MEDS: GABAPENTIN 400 MG CAP PO SCH (09:38)
--- NOTE | 2018-11-27 10:19 | PDOCDIS ---
Discharge Instructions DIAGNOSIS Discharge Diagnosis 1. Acute Bronchitis 2. CHF 3. Atrial Fib CONDITION [id number] Patient Condition: [id number] Fair HOME CARE INSTRUCTIONS: [id number] Diet Instructions: [id number] Reduced Sodium ACTIVITY: [id number] Activity Restrictions: [id number] Slowly Increase Activity Rest between Activity Avoid heavy lifting Do not Drive Do not operate Machinery [id number] Bathing Restrictions: [id number] Shower FOLLOW UP/APPOINTMENTS Follow-up Plan Dr Valera for an appointment next week . BETTY MCKEON MD Nov 27, 2018 10:19
--- NOTE | 2018-11-27 11:53 | CONS ---
Consult Date/Type/Reason Admit Date/Time Nov 16, 2018 at 15:30 Initial Consult Date 11/20/18 Type of Consult Pulmonary Requesting Provider: BETTY MCKEON MD Date/Time of Note DATE: 11/27/18 TIME: 11:24 Subjective Breathing better no respiratory distress. Doing well, no new evens, want to go home. Objective Vital Signs Date Temp Pulse Resp B/P (MAP) Pulse Ox O2 O2 Flow FiO2 Time Delivery Rate 11/27/18 98.2 90 18 137/90 98 07:47 (106) 11/27/18 2.0 05:14 11/26/18 Nasal 23:01 Cannula 11/26/18 28 01:05 Intake and Output 11/26/18 11/26/18 11/27/18 1515:00 23:00 07:00 IntakeIntake Total 800 ml 400 ml OutputOutput Total 200 ml 250 ml BalanceBalance 600 ml 150 ml Exam PHYSICAL EXAMINATION: GENERAL: Chronically ill-appearing lady, no respiratory distress no accessory muscle use. Confused at baseline. VITAL SIGNS: NECK: Supple. No JVD or lymphadenopathy. CARDIAC: S1, S2. No added sounds or murmurs. CHEST: Diminished air entry bilaterally. ABDOMEN: Soft, nontender. No guarding or rebound. EXTREMITIES: No cyanosis, clubbing or edema. NEUROLOGIC: Generalized weakness. Vent Setting Fraction of Inspired Oxygen pe: 28 Results/Medications Result Diagram: 11/26/18 1017 11/26/18 1017 Results 24 hrs Laboratory Tests Test 11/26/18 16:30 Urine Color STRAW Urine Clarity CLEAR Urine pH 7.0 Urine Specific [place] 1.006 Urine Ketones NEGATIVE Urine Nitrite NEGATIVE Urine Bilirubin NEGATIVE Urine Urobilinogen NEGATIVE Urine Leukocyte Esterase NEGATIVE Urine Microscopic RBC 22 H Urine Microscopic WBC 1 Urine Hemoglobin 1+ H Urine Glucose NEGATIVE Urine Total Protein NEGATIVE Medications Current Medications IV Flush (NS 3 ml) 3 ml PER PROTOCOL IV ; Start 11/16/18 at 14:30 Lorazepam (Ativan) 0.5 mg Q6H PRN IV .ANXIETY Last administered on 11/25/18at 22:26; Admin Dose 0.5 MG; Start 11/16/18 at 14:30 Nitroglycerin (Nitroglycerin (Sl Tab) 0.4 Mg) 1 tab Q5M PRN SL .CHEST PAIN; Start 11/16/18 at 14:30 Acetaminophen (Tylenol Tab) 650 mg Q6H PRN PO .PAIN 1-3 OR TEMP; Start 11/16/18 at 14:30 Acetaminophen/ Hydrocodone Bitart ([place] (5/325)) 1 tab Q6H PRN PO .PAIN 4-6 Last administered on 11/16/18 15:59; Admin Dose 1 TAB; Start 11/16/18 at 14:30 Pantoprazole (Protonix Tab) 40 mg DAILY@06 PO Last administered on 11/27/18 05:55; Admin Dose 40 MG; Start 11/17/18 at 06:00 Albuterol/ Ipratropium (Duoneb) 3 ml Q6HWA RESP THERAPY HHN Last administered on 11/27/18 08:57; Admin Dose 3 ML; Start 11/16/18 at 20:00 Gabapentin (Neurontin) 400 mg BID PO Last administered on 11/27/18 09:38; Admin Dose 400 MG; Start 11/16/18 at 21:00 Sertraline HCl (Zoloft) 100 mg DAILY PO Last administered on 11/27/18 09:38; Admin Dose 100 MG; Start 11/17/18 at 09:00 Atorvastatin Calcium (Lipitor) 20 mg HS PO Last administered on 11/26/18 2 1:39; Admin Dose 20 MG; Start 11/16/18 at 21:00 Mupirocin (Bactroban) 1 applic BID TOP Last administered on 11/27/18 09:38; Admin Dose 1 APPLIC; Start 11/18/18 at 09:00 Clonidine (Catapres) 0.1 mg TID PRN PO ELEVATED BLOOD PRESSURE Last administered on 11/21/18 08:56; Admin Dose 0.1 MG; Start 11/21/18 at 08:30 Losartan Potassium (Cozaar) 25 mg DAILY PO Last administered on 11/27/18 09:37; Admin Dose 25 MG; Start 11/21/18 at 09:00 Docusate Sodium (Colace) 100 mg BID PO Last administered on 11/27/18 09:37; Admin Dose 100 MG; Start 11/23/18 at 11:00 Magnesium Hydroxide (Milk Of Mag) 30 ml DAILY PRN PO CONSTIPATION; Start 11/23/18 at 11:00 Bisacodyl (Dulcolax Supp) 10 mg DAILY PRN [place] CONSTIPATION; Start 11/23/18 at 11:00 Prednisone (Prednisone) 40 mg DAILY PO Last administered on 11/27/18at 09:38; Admin Dose 40 MG; Start 11/25/18 at 09:00 Furosemide (Lasix) 40 mg DAILY PO Last administered on 11/27/18at 09:38; Admin Dose 40 MG; Start 11/25/18 at 09:00 Ciprofloxacin (Cipro) 250 mg BID@06,18 PO Last administered on 11/27/18at 05:54; Admin Dose 250 MG; Start 11/27/18 at 06:00 Assessment/Plan Hospital Course (Demo Recall) IMPRESSION AND PLAN: 1. Likely chronic obstructive pulmonary disease exacerbation with acute bronchospasm. Possible mild CHF component. 2. Recent urinary tract infection with Proteus mirabilis RECOMMENDATIONS: 1. Short steroid taper which has already been started. 2. Continue gentle diuretics. 3. Aspiration precautions. 4. Anticoagulation for atrial fibrillation. 5. DVT and GI prophylaxis. DC planning okay from pulmonary standpoint PATTI NEUMANN MD, [facility] Nov 27, 2018 11:34
== END 2018-11-27 12:10 | disposition home health service (06) | DRG 190 ==
LOC: INTOOBSV 13:05 → 6WM 13:05 → OBSVTOIN 15:30
PROVIDERS: ADMIT Internal Medicine; ATTEND Internal Medicine
DX: J44.0 Chronic obstructive pulmonary disease with (acute) lower respiratory infection (principal); I50.33 Acute on chronic diastolic (congestive) heart failure; N39.0 Urinary tract infection, site not specified; I25.10 Atherosclerotic heart disease of native coronary artery without angina pectoris; E78.5 Hyperlipidemia, unspecified; I48.2 Chronic atrial fibrillation; F03.90 Unspecified dementia, unspecified severity, without behavioral disturbance, psychotic disturbance, mood disturbance, and anxiety; Z87.891 Personal history of nicotine dependence; I11.0 Hypertensive heart disease with heart failure; B96.4 Proteus (mirabilis) (morganii) as the cause of diseases classified elsewhere; J20.9 Acute bronchitis, unspecified
CPT/HCPCS: 71045; 76856; 80048; 80053; 81001; 83036; 83735; 83880; 84100; 84145; 85025; 85610; 85730; 87070; 87081; 87086; 87275; 87276; 87279; 87280; 93005; 93306; 94640; 94664; 97110; 97116; 97162; 97165; 97530; G0378; J1940; J1956; J2060; J2920; J7512